=== PATIENT | male | born 1950 | race Caucasian/White ===

== ENCOUNTER 2016-07-02 15:29 | Inpatient (IN) ==
[2016-07-02 16:35] LABS: Basophils # 0.1 K/mcL (0.0-0.2); Basophils % 0.6 %; Eosinophils # 0.3 K/mcL (0.0-0.6); Eosinophils % 2.9 %; Hematocrit 43.9 % (37.5-50.1); Hemoglobin 14.7 g/dL (12.9-16.9); Immature Granulocytes % 0.8 % (0-4); Lymphocytes # 1.9 K/mcL (0.6-4.6); Mean Corpuscular HGB Conc 33.5 g/dL (31.6-35.5); Mean Corpuscular Hemoglobin 29.5 pg (28.0-33.3); Mean Corpuscular Volume 88.2 fL (83.0-100.0); Mean Platelet Volume 9.2 fL (9.4-12.4); Monocytes % 11.1 %; Neutrophils # 5.6 K/mcL (1.6-8.9); Platelet Count 308 K/mcL (140-400); Red Blood Count 4.98 M/mcL (4.19-5.50); Red Cell Distribution Width 15.9 % (11.5-14.5); Segmented Neutrophils % 63.6 %
--- NOTE | 2016-07-02 16:44 | Emergency Department Note ---
Disposition Clinical Impression: Atrial fibrillation with RVR Disposition: Admitted As Inpatient Condition: Fair Arrhythmia/Palpitations HPI - General Chief Complaint: ED Arrhythmia/Palpitations Stated Complaint: A-fib RVR, sent from Echo Time Seen by Provider: 07/02/16 15:54 Source: patient, family Limitations: no limitations Nursing Notes Reviewed: Yes Vital Signs Reviewed: Yes - History of Present Illness HPI Narrative: Patient has been having shortness of breath for the last several months was started on Lasix and does feel better and was scheduled for an echocardiogram today and walked into the parking lot when he got there his heart rate was fast and was in atrial fibrillation so was sent here. No medication use specifically for these symptoms. The patient does have a history of atrial fibrillation but has not had it recently. He denies any chest pain or current shortness of breath. No pain or numbness of the lower extremities. He is here with his and a friend. Denies any fever or blurred vision, rhinorrhea, cough, sneezing, blood in the urine or stool, skin rash or bruising of the skin. Social history: No smoking, only occasional alcohol - Related Data Home Medications Medication Instructions Recorded Confirmed Carvedilol [Coreg] 6.25 mg PO DAILY 04/19/15 07/02/16 Furosemide [Lasix] 80 mg PO BID 04/19/15 07/02/16 Insulin ASPART [Novolog Flexpen] 0 unit SQ BID 04/19/15 07/02/16 Lisinopril-HCTZ 20-12.5 [Prinzide 1 each PO DAILY 04/19/15 07/02/16 20-12.5] HYDROcodone/Acet 5/325 mg [[place] 1 tab PO Q8H PRN 05/24/15 07/02/16 5-325 mg] Gabapentin [Neurontin] 100 mg PO TID 07/02/16 07/02/16 Ibuprofen [Ibuprofen] 800 mg PO TID PRN 07/02/16 07/02/16 Insulin Glargine,Hum.rec.anlog 50 unit SQ HS 07/02/16 07/02/16 [Lantus Solostar] Paroxetine [Paxil] 20 mg PO DAILY 07/02/16 07/02/16 Trazodone HCl 100 mg PO HS 07/02/16 07/02/16 metFORMIN [Glucophage] 500 mg PO BIDWM 07/02/16 07/02/16 Allergies Allergy/AdvReac Type Severity Reaction Status Date / Time No Known Allergies Allergy Verified 07/02/16 15:36 Review of Systems: Constitutional: No fever Vision: No blurred vision ENT: No rhinorrhea Respiratory: No cough Allergic: No allergies : No blood in urine GI: No blood in stool Hematologic: No bruising Dermatologic: No skin rash Musculoskeletal: No pain in the extremities Neuro: No numbness of the extremities Past Medical History - Past Medical History Medical history: Reports: arthritis, atrial fibrillation, CHF, diabetes, hyperlipidemia, hypertension Psychiatric history: Reports: anxiety, depression - Social History Smoking Status: Never smoker Smokeless Tobacco Status: No Alcohol use: Reports: none, occasionally Drug use: Reports: none Physical Exam CONSTITUTIONAL: Well-appearing; well-nourished; A&O X 3, in no apparent distress HEAD: Normocephalic; atraumatic EYES: PERRL, no scleral icterus NOSE: The nose is normal in appearance without rhinorrhea NECK: No JVD or distended neck veins RESP: Normal chest excursion with respiration; breath sounds clear and equal bilaterally; no wheezes, rhonchi, or rales CARD: Irregularly irregular and tachycardic rhythm, without murmurs, rub or gallop ABD: Non-distended; non-tender, soft, without rigidity, rebound or guarding,no pulsatile mass CHEST: No pain with palpation SKIN: Normal for age and race; warm and dry without diaphoresis ; no apparent lesions EXTREMITIES: Pulses are 2 plus and equal times 4 extremities, no peripheral edema or calf muscle pain - General Limitations: no limitations General appearance: alert Course Vital Signs Temperature 97.6 F 07/02/16 15:31 Pulse Rate 94 07/02/16 15:31 Respiratory Rate 20 07/02/16 15:31 Blood Pressure 133/65 07/02/16 15:31 O2 Sat by Pulse Oximetry 94 07/02/16 15:31 Temperature 97.5 F L 07/02/16 19:22 Pulse Rate 91 07/02/16 19:22 Respiratory Rate 14 07/02/16 19:22 Blood Pressure 106/64 07/02/16 19:22 O2 Sat by Pulse Oximetry 95 07/02/16 19:22 Oxygen Delivery Oxygen Delivery Nasal Cannula Arrhythmia/Palpitations - [facility] Narrative Medical decision making narrative: The patient will have a Cardizem bolus and drip and I did review his EKG showing atrial fibrillation with a rapid ventricular response with a rate of [address] and T wave change. Labs including troponin are pending. Patient is not a candidate for cardioversion due to the fact that we do not know the timing of the onset of the symptoms. Results pending. The patient will be watched closely on the route sales specialist. 164 I did review the patient's labs. I did review with him the risks and benefits of Lovenox. He has not had any rectal bleeding or blood in the urine. He did fall 3 weeks ago with several rib fractures on the right and does have a ecchymotic lesion/area on the right lower back but I do not feel this represents a significant risk. No recent head trauma and he did not have any head trauma with his fall 3 weeks ago. The patient will be started on Lovenox I also discussed this with the hospitalist physician. He is currently sitting up and eating. His heart rate is significantly improved with Cardizem. 184 - Medical Records Medical records reviewed: Yes I reviewed the patient's medical records. - Lab Data Lab results reviewed: Yes I reviewed the patient's lab results. Result diagrams: 07/02/16 16:21 07/02/16 16:21 Lab Results 07/02/16 07/02/16 07/02/16 Range/Units 16:21 16:21 16:21 WBC 8.8 (4.3-11.1) K/mcL RBC 4.98 (4.19-5.50) M/mcL Hgb 14.7 (12.9-16.9) g/dL Hct 43.9 (37.5-50.1) % MCV 88.2 (83.0-100.0) fL MCH 29.5 (28.0-33.3) pg MCHC 33.5 (31.6-35.5) g/dL RDW 15.9 H (11.5-14.5) % Plt Count 308 (140-400) K/mcL MPV 9.2 L (9.4-12.4) fL Immature Gran % 0.8 (0-4) % Seg Neutrophils % 63.6 % Lymphocytes % 21.0 % Monocytes % 11.1 % Eosinophils % 2.9 % Basophils % 0.6 % Neutrophils # 5.6 (1.6-8.9) K/mcL Lymphocytes # 1.9 (0.6-4.6) K/mcL Monocytes # 1.0 (0.0-1.3) K/mcL Eosinophils # 0.3 (0.0-0.6) K/mcL Basophils # 0.1 (0.0-0.2) K/mcL PT 12.3 H (9.4-12.1) Seconds INR 1.1 APTT 33.7 (26.0-36.0) Seconds Sodium 136 (136-145) mEq/L Potassium 3.7 (3.5-4.5) mEq/L Chloride 97 L (98-109) mEq/L Carbon Dioxide 28 (19-29) mEq/L BUN 60 H (8-26) mg/dL Creatinine 1.64 H (0.72-1.25) mg/dL Est GFR ( Amer) 52 L (> 60) Est GFR (Non-Af Amer) 43 L (> 60) BUN/Creatinine Ratio 37 H (6-26) Glucose 69 L (70-99) mg/dL Calculated Osmolality 297 (280-300) Calcium 9.8 (8.6-10.8) mg/dL Troponin I (0-0.03) ng/mL 07/02/16 Range/Units 16:21 WBC (4.3-11.1) K/mcL RBC (4.19-5.50) M/mcL Hgb (12.9-16.9) g/dL Hct (37.5-50.1) % MCV (83.0-100.0) fL MCH (28.0-33.3) pg MCHC (31.6-35.5) g/dL RDW (11.5-14.5) % Plt Count (140-400) K/mcL MPV (9.4-12.4) fL Immature Gran % (0-4) % Seg Neutrophils % % Lymphocytes % % Monocytes % % Eosinophils % % Basophils % % Neutrophils # (1.6-8.9) K/mcL Lymphocytes # (0.6-4.6) K/mcL Monocytes # (0.0-1.3) K/mcL Eosinophils # (0.0-0.6) K/mcL Basophils # (0.0-0.2) K/mcL PT (9.4-12.1) Seconds INR APTT (26.0-36.0) Seconds Sodium (136-145) mEq/L Potassium (3.5-4.5) mEq/L Chloride (98-109) mEq/L Carbon Dioxide (19-29) mEq/L BUN (8-26) mg/dL Creatinine (0.72-1.25) mg/dL Est GFR ( Amer) (> 60) Est GFR (Non-Af Amer) (> 60) BUN/Creatinine Ratio (6-26) Glucose (70-99) mg/dL Calculated Osmolality (280-300) Calcium (8.6-10.8) mg/dL Troponin I 0.02 (0-0.03) ng/mL - Radiology Data Radiology results reviewed: Yes I reviewed the patient's radiology results. Chest X-Ray 07/02/16 15:38 IMPRESSION: No acute cardiopulmonary disease D/ / Jaylen Figueroa MD / Jaylen Figueroa MD Interpreting Provider: Jaylen Figueroa MD
[2016-07-02 16:46] LABS: Calcium 9.8 mg/dL (8.6-10.8); Potassium 3.7 mEq/L (3.5-4.5)
[2016-07-02 16:53] LABS: INR 1.1; Prothrombin Time 12.3 Seconds (9.4-12.1)
[2016-07-02 16:55] LABS: Activated Partial Thrombo Time 33.7 Seconds (26.0-36.0)
[2016-07-02] MEDS ORDERED: *HR* Enoxaparin 80 MG/0.8 ML SYRINGE SQ SCH ×2 (18:45→19:30)
[2016-07-02] MEDS ORDERED: Naloxone 0.4 MG/ML INJ IVP PRN (19:05)
[2016-07-02] MEDS ORDERED: *HR* Dextrose 50 % in Water (Syg) 50 ML SYRINGE IVP PRN (19:17)
[2016-07-02] MEDS ORDERED: Dextrose Gel 15 GM PO PRN ×2 (19:17)
[2016-07-02] MEDS ORDERED: D5% in Water 1,000 ML IVC PRN ×2 (19:17→20:35)
--- NOTE | 2016-07-02 20:20 | Internal Med History&Physical ---
<SamCalli J - Last Filed: 07/02/16 20:16> Date of Encounter: 07/02/16 Time of Encounter: 20:16 Assessment and Plan (1) Atrial fibrillation with RVR Current visit: Yes Status: Acute found during outpatient TTE. EKG with A-fib with RVR, HRs up to 150s. Diltiazem gtt and lovenox started ED. HR improved to 90s. TTE with severely dilated left atrium. Trend tropoinin, Cardiology consulted (will need called in am) (2) Acute systolic (congestive) heart failure Current visit: Yes Status: Acute New diagnosis. ROB 07/02/2016 with EF 25%. Appears compensated on exam. Hold home NEGRO with ALIX. Cont araceli, BB. Cardiology consulted. BNP pending (3) ALIX (acute kidney injury) Current visit: Yes Status: Acute Creat 1.6 no baseline and chart for comparison. Patient denies any CTD. Possibly cardiorenal syndrome. Hold home Negro. No IV fluids with low EF. Monitor repeat CMP (4) Diabetes mellitus Current visit: Yes Status: Acute Per history. Control unknown. Continue home long-acting insulin, add sliding scale insulin. Monitor blood sugar and titrate PRN. Hgb A1c pending Qualifiers: Diabetes mellitus type: type 2 Diabetes mellitus complication status: with hyperglycemia Diabetes mellitus intermediate insulin use: with intermediate use Qualified Code(s): E11.65 - Type 2 diabetes mellitus with hyperglycemia; Z79.4 - rat exterminator (current) use of insulin (5) DELMI (obstructive sleep apnea) Current visit: Yes Status: Acute Continue CPAP inpatient (6) DVT prophylaxis Current visit: Yes Status: Acute Lovenox Internal Medicine - H&P: HPI Chief complaint: a-fib found suring routine echo Admitted From: Home Plans for Post Hospital Care: Home History of present illness: Mr. Nguyen is a 65 year old male hypertension, diabetes, sleep apnea who presented to [facility] on 07/02/2016 after he was found to be in A. fib with RVR at routine echo. He was started on Cardizem drip in the ED and admitted for cardiology evaluation. Information obtained from chart review and patient report. Patient's that he had episode of increasing shortness of breath a couple weeks ago and Lasix was increased by his primary care physician at that time an echo was also ordered he presented today for the echo which showed the A. fib with RVR and also new CHF. On my exam the patient says he feels fine, says he has felt better today than he has in a long time. He actually has no complaints, specifically denies chest pain no shortness of breath no palpitations no lightheadedness or dizziness. Past Med Surg Social Fam HX - Past Medical History Medical history: arthritis, atrial fibrillation, CHF, diabetes, hyperlipidemia, hypertension Psychiatric history: anxiety, depression - Past Surgical History Surgical History: non-contributory - Social History Smoking Status: Never smoker Smokeless Tobacco Status: No Alcohol use: none, occasionally Drug use: none - Family History Mother Living Status: Hx Family Cardiac Disorders: Yes Hx Family Cancer: Yes (Breast) Hx Family Endocrine Disorder: Yes (DM) Father Living Status: Hx Family Cancer: Yes (Lung) Internal Medicine - H&P: Meds Carvedilol [Coreg] 6.25 mg PO DAILY 04/19/15 [History] Furosemide [Lasix] 80 mg PO BID 04/19/15 [History] Insulin ASPART [Novolog Flexpen] 0 unit SQ BID 04/19/15 [History] Lisinopril-HCTZ 20-12.5 [Prinzide 20-12.5] 1 each PO DAILY 04/19/15 [History] HYDROcodone/Acet 5/325 mg [[place] 5-325 mg] 1 tab PO Q8H PRN 05/24/15 [History] Gabapentin [Neurontin] 100 mg PO TID 07/02/16 [History] Ibuprofen [Ibuprofen] 800 mg PO TID PRN 07/02/16 [History] Insulin Glargine,Hum.rec.anlog [Lantus Solostar] 50 unit SQ HS 07/02/16 [History ] Paroxetine [Paxil] 20 mg PO DAILY 07/02/16 [History] Trazodone HCl 100 mg PO HS 07/02/16 [History] metFORMIN [Glucophage] 500 mg PO BIDWM 07/02/16 [History] Allergies No Known Allergies Allergy (Verified 07/02/16 15:36) All Systems PM: A 10-system review of systems was performed and is negative for pertinent findings except as documented above in the HPI. - Constitutional Constitutional: no chills, no fever(s), no night sweats - EENT Eyes: no change in vision, no discharge, no pain, no photophobia Ears: no ear discharge, no ear pain, no tinnitus Nose, mouth and throat: no dysphagia, no nasal discharge, no neck pain, no sore throat - Cardiovascular Cardiovascular ROS IM: no chest pain, no diaphoresis, no dyspnea, no lightheadedness, no palpitations, no syncope - Respiratory Respiratory: no cough, no dyspnea, no wheezing, no excessive phlegm production - Gastrointestinal Gastrointestinal: no abdominal pain, no diarrhea, no hematemesis, no hematochezia, no melena, no nausea, no vomiting - Musculoskeletal Musculoskeletal ROS IM: no numbness, no tingling - Integumentary Integumentary IM: no rash, no unusual bruising - Neurological Neurological ROS: no confusion, no convulsions, no focal weakness, no numbness, no tingling, no tremor(s) - Hematologic/Lymphatic Hematologic/Lymphatic: no easy bruising - Constitutional Vitals: Temp Pulse Resp BP Pulse Ox 97.5 F L 91 14 106/64 95 07/02/16 19:22 07/02/16 19:22 07/02/16 19:22 07/02/16 19:22 07/02/16 19:22 General appearance: Present: A&O X 3, morbidly obese - Head Head exam: Present: atraumatic, normocephalic - Eye Eye exam: Present: PERRL, conjuntiva pink, sclera anicteric Pupils: Present: PERRL - Neck Neck exam general surgery: Present: supple, trachea midline. Absent: lymphadenopathy - Respiratory Respiratory exam: Present: CTAB. Absent: accessory muscle use, rales, rhonchi, wheezes - Cardiovascular Cardiovascular exam: Present: irregular rhythm, +S1, +S2. Absent: diastolic murmur, gallop, rubs, systolic murmur - GI/Abdominal GI/Abdominal exam: Present: normal bowel sounds, soft, no peritoneal signs. Absent: distended, tenderness Additional comments: obese - Extremities Exam Extremities exam: Present: warm, radial pulses palpable and symetrical. Absent : calf tenderness, cyanotic, pedal edema - Neurological Exam Neurological exam: Present: CN II-XII intact, oriented X3, no focal deficits. Absent: pronater drift, facial droop, speech deficit - Skin Skin exam: Present: dry, intact Internal Med - H&P Results - Labs CBC & Chem 7: 07/02/16 16:21 07/02/16 16:21 <Ang Amos - Last Filed: 07/03/16 00:09> Date of Encounter: 07/02/16 Assessment and Plan (1) Renal insufficiency Current visit: Yes Status: Acute baseline renal function unknown but his creatinine is elevated at this time, will avoid nephrotoxins, renally dose al medications and follow BMP Internal Medicine - H&P: HPI History of present illness: Mr. Nguyen is a 65 year old male All Systems PM: A 10-system review of systems was performed and is negative for pertinent findings except as documented above in the HPI. - Constitutional Vitals: Temp Pulse Resp BP Pulse Ox 97.5 F L 91 14 106/64 98 07/02/16 19:22 07/02/16 19:22 07/02/16 19:22 07/02/16 19:22 07/02/16 23:46 Internal Med - H&P Results - Labs CBC & Chem 7: 07/02/16 16:21 07/02/16 16:21 - Diagnostic Studies Chest x-ray Status: image reviewed by me - Attending Attestation I personally interviewed and examined this patient and my medical decision- making was reviewed with the Advanced Practice Nurse. I agree with the documented findings, disposition and treatment plan as described.
[2016-07-02 20:28] LABS: Hemoglobin A1C 6.5 %
[2016-07-02] MEDS ORDERED: 0.9 % Sodium Chloride 1,000 ML ONE (20:43)
[2016-07-02] MEDS: Gabapentin 100 MG CAPSULE PO SCH (20:52)
[2016-07-02] MEDS: Furosemide 40 MG TABLET PO SCH (20:53)
[2016-07-02] MEDS: *HR* Enoxaparin 80 MG/0.8 ML SYRINGE SQ SCH (20:53)
[2016-07-02] MEDS: traZODone 50 MG TABLET PO SCH (20:53)
[2016-07-02] MEDS ORDERED: Insulin DETEMIR 100 UNIT/ML X5UNITS SQ SCH ×2 (21:00)
[2016-07-02] MEDS ORDERED: Insulin LISPRO 300 UNITS/3 ML VIAL SQ SCH (21:00)
[2016-07-02] MEDS ORDERED: Furosemide 40 MG/4 ML VIAL IVP SCH (21:00)
[2016-07-02] MEDS: *HR* HYDROcodone/Acet 5/325 mg TABLET PO PRN (23:14)
[2016-07-03 01:08] LABS: Basophils # 0.1 K/mcL (0.0-0.2); Basophils % 0.5 %; Eosinophils # 0.3 K/mcL (0.0-0.6); Eosinophils % 2.9 %; Hematocrit 40.5 % (37.5-50.1); Hemoglobin 13.4 g/dL (12.9-16.9); Immature Granulocytes % 0.5 % (0-4); Lymphocytes % 21.4 %; Mean Corpuscular HGB Conc 33.1 g/dL (31.6-35.5); Mean Corpuscular Hemoglobin 29.2 pg (28.0-33.3); Mean Corpuscular Volume 88.2 fL (83.0-100.0); Mean Platelet Volume 9.4 fL (9.4-12.4); Monocytes # 0.8 K/mcL (0.0-1.3); Neutrophils # 6.1 K/mcL (1.6-8.9); Platelet Count 299 K/mcL (140-400); Red Blood Count 4.59 M/mcL (4.19-5.50); Red Cell Distribution Width 15.8 % (11.5-14.5); Segmented Neutrophils % 65.7 %
[2016-07-03 01:35] LABS: Albumin 3.4 g/dL (3.5-5.0); Albumin/Globulin Ratio 0.9 (1.1-2.2); Bilirubin,Total 0.9 mg/dL (0.2-1.2); Calcium 9.3 mg/dL (8.6-10.8); Chol/HDL Ratio 7.4 (0-4.9); Globulin 3.7 g/dL (2.4-3.5); Potassium 3.6 mEq/L (3.5-4.5); Total Protein 7.1 g/dL (6.0-8.3)
[2016-07-03] MEDS: *HR* Enoxaparin 80 MG/0.8 ML SYRINGE SQ SCH (05:06)
[2016-07-03] MEDS ORDERED: Insulin LISPRO 300 UNITS/3 ML VIAL SQ SCH (07:30)
--- NOTE | 2016-07-03 08:05 | Cardiology Consult Note ---
Date of Encounter: 07/03/16 Time of Encounter: 08:04 Assessment and Plan (1) Acute systolic (congestive) heart failure Current Visit: Yes Status: Acute TTE done on 07/02/2016 shows severely dilated right atrium, global hypokinesis, ejection fraction 25-30%. No prior echocardiogram for comparison - CHF initially diagnosed in 2008 with prior episode of A. fib that required multiple cardioversions; however, pt states he did not need Lasix again until a few years ago. - Pt just saw his PCP Dr. Trotter on 05/27/16 with worsening "fluid in the lungs " and orthopnea. Pt states his lasix was doubled for the next week. - Currently lungs sound clear, no dyspnea, no peripheral edema- Can decrease lasix to 40 mg BID. - Change Carvedilol 6.25mg to Toprol XL 50mg BID due to soft BPs and better cardioselective activity. - Due to worsening EF and multiple risk factors for ischemic disease, will plan to heart cath once renal function improves; NPO after breakfast tomorrow for possible heart cath tomorrow afternoon. (2) Atrial fibrillation with RVR Current Visit: Yes Status: Acute Heart rate during my examination is anywhere from low 100 to 120s. - Currently on Cardizem drip and anticoagulated with Lovenox 170 subcutaneous every 12 hours - Increase Toprol XL to 50mg BID. (3) Renal insufficiency Current Visit: Yes Status: Acute AKA on CKD with creatinine 2.19. Previously on 07/28/2013 was 1.02 - Hold Lisinopril-HCTZ - Avoid nephrotoxins Discussion w patient/family: The assessment and plan as outlined above was discussed with the patient and/or family members who expressed understanding and agreement. All questions were answered. Thank you for involving us in the care of your patient. Please call with any questions. History of Present Illness Consult date: 07/02/16 Requesting physician: Calli Vargas Consult reason: a fib with RVR, decreased EF 25-30% Chief complaint: shortness of breath History of present illness: Mr. Nguyen is a 65 year old male with a past medical history of atrial fibrillation, congestive heart failure, type 2 diabetes, hyperlipidemia, hypertension, obstructive sleep apnea. He initially presented to the emergency department after having an outpatient echocardiogram which showed reduced ejection fraction 25-30% with global hypokinesis and severely dilated atrium. He was also found to be in atrial fibrillation with RVR at that time. Patient states at that time he had just told his that he felt better than he had in several months. However prior to this, he was feeling more short of breath and his primary care physician Dr. Trotter had doubled his Lasix dose for approximately 9 days which relieved his symptoms. Patient does not know when his last echocardiogram was. States the first time he heard A. fib and congestive heart failure mentioned was back in 2008 in which she required multiple cardioversions. States he has taken Lasix for a few weeks but then he did not need them anymore. Patient states he started tasting Lasix again per his primary care physician over the last few years. Patient denies any nausea, vomiting, fever or chills. No chest pain or difficulty breathing. No problems with urination or bowel movements. The patient does have history of kidney problems and states he is scheduled to see outpatient gis engineer. In the emergency department, patient was found to be in A. fib with RVR with a rate in the 120s. He was placed on a Cardizem drip as well as Lovenox subcutaneous for anticoagulation. Patient was then admitted to the inpatient service and cardiology was consulted for their reduced ejection fraction and A. fib with RVR. Past Med Surg Social Fam HX - Past Medical History Medical history: arthritis, atrial fibrillation, CHF, diabetes, hyperlipidemia, hypertension Psychiatric history: anxiety, depression - Past Surgical History Surgical History: non-contributory - Social History Smoking Status: Never smoker Smokeless Tobacco Status: No Alcohol use: none, occasionally Drug use: none - Family History Mother Living Status: Cause of : [place] Hx Family Cardiac Disorders: Yes ([place],smoker) Hx Family Cancer: Yes (Breast) Hx Family Endocrine Disorder: Yes (DM) Father Living Status: Hx Family Cancer: Yes (Lung, smoker) Medications and Allergies Carvedilol [Coreg] 6.25 mg PO DAILY 04/19/15 [History] Furosemide [Lasix] 80 mg PO BID 04/19/15 [History] Insulin ASPART [Novolog Flexpen] 0 unit SQ BID 04/19/15 [History] Lisinopril-HCTZ 20-12.5 [Prinzide 20-12.5] 1 each PO DAILY 04/19/15 [History] HYDROcodone/Acet 5/325 mg [[place] 5-325 mg] 1 tab PO Q8H PRN 05/24/15 [History] Gabapentin [Neurontin] 100 mg PO TID 07/02/16 [History] Ibuprofen [Ibuprofen] 800 mg PO TID PRN 07/02/16 [History] Insulin Glargine,Hum.rec.anlog [Lantus Solostar] 50 unit SQ HS 07/02/16 [History ] Paroxetine [Paxil] 20 mg PO DAILY 07/02/16 [History] Trazodone HCl 100 mg PO HS 07/02/16 [History] metFORMIN [Glucophage] 500 mg PO BIDWM 07/02/16 [History] Allergies No Known Allergies Allergy (Verified 07/02/16 15:36) All Systems Review: A 10-system review of systems was performed and is negative for pertinent findings except as documented above in the HPI. - Constitutional Constitutional: no fatigue, no weakness - EENT Eyes: no blurred vision Nose, mouth and throat: no dysphagia, no sore throat - Cardiovascular Cardiovascular: irregular heart rhythm, no chest pain at rest, no chest pain with exertion, no dyspnea at rest, no dyspnea on exertion, no radiating jaw, neck or arm pain, no leg edema, no lightheadedness - Respiratory Respiratory: no cough, no dyspnea - Gastrointestinal Gastrointestinal: no abdominal pain - Genitourinary Genitourinary: no dysuria - Musculoskeletal Musculoskeletal: back pain (chronic) - Integumentary Integumentary: no erythema, no rash - Neurological Neurological: no abnormal speech, no dizziness, no focal weakness Physical Examination Vital Signs, Last 4 Hours Temp Pulse Resp BP Pulse Ox 07/03/16 04:29 97.6 F 88 17 93/76 93 General: Conversant, No Apparent Distress HEENT: Atraumatic, Mucus Membranes Moist Neck: No JVD, Normal carotid pulses Cardiac: Other Lungs: Normal Breath Sounds, No Wheeze, Rales, Rhonchi Neuro: Alert and responsive, No focal deficits noted Abdomen: Soft, Non-Tender (a fib with rvr) Skin: No rashes noted on visualized skin Musculoskeletal: No Chest Wall Tenderness Extremities: No Clubbing, No Edema, Normal Pulses Results 07/03/16 00:58 07/03/16 00:58 Lab Results 05/07/03/16 07/03/16 00:58 00:58 00:58 WBC 9.4 Hgb 13.4 Hct 40.5 Plt Count 299 Sodium 135 L Potassium 3.6 Chloride 96 L Carbon Dioxide 28 BUN 65 H Creatinine 2.05 H Glucose 254 H Calcium 9.3 Total Bilirubin 0.9 AST 16 ALT 18 Alkaline Phosphatase 71 Troponin I 0.02 07/03/16 06:32 WBC Hgb Hct Plt Count Sodium Potassium Chloride Carbon Dioxide BUN Creatinine Glucose Calcium Total Bilirubin AST ALT Alkaline Phosphatase Troponin I 0.02 - Imaging and Cardiology Chest Xray: report reviewed Echo: report reviewed - EKG Interpretation EKG results cardiology: personally reviewed, no diagnostic ischemia (EKG done at 16:39 on 07/02/16 shows A fib with RVR rate 126, left axis deviation) Consult Discharge Plan - Plan Referrals: Danielle Morocho, YOLI [Advanced Practice Nurse] - 07/13/16 3:15 pm
[2016-07-03] MEDS: Gabapentin 100 MG CAPSULE PO SCH ×3 (08:38→21:09)
[2016-07-03] MEDS: Furosemide 40 MG TABLET PO SCH ×2 (08:38→17:13)
[2016-07-03] MEDS ORDERED: Lisinopril-HCTZ 20-12.5mg TABLET PO SCH (09:00)
[2016-07-03] MEDS: *HR* HYDROcodone/Acet 5/325 mg TABLET PO PRN ×2 (12:53→23:50)
[2016-07-03] MEDS: Insulin DETEMIR 100 UNIT/ML X5UNITS SQ SCH ×2 (12:54→21:09)
[2016-07-03] MEDS: Insulin LISPRO 300 UNITS/3 ML VIAL SQ SCH ×5 (12:55→21:02)
--- NOTE | 2016-07-03 13:38 | Internal Med Progress Note ---
Date of Encounter: 07/03/16 Time of Encounter: 13:37 - Assessment and plan (1) Acute systolic (congestive) heart failure Current Visit: Yes Status: Acute Assessment and plan: Likely secondary to conversion from sinus to atrial fibrillation. We will treat him with Lasix 40 mg IV twice a day. Daily weights. Sodium restricted diet. Fluid restriction. Strict I's and O's. (2) Atrial fibrillation with RVR Current Visit: Yes Status: Acute Assessment and plan: Currently on Cardizem drip. We will continue this. We will titrate to maintain heart rate between 70 and 90. Cardiology was consulted. We will start oral diltiazem. He is anticoagulated with Lovenox. (3) DVT prophylaxis Current Visit: Yes Status: Acute Assessment and plan: Fully anticoagulated with Lovenox. (4) Diabetes mellitus Current Visit: Yes Status: Acute Assessment and plan: Poorly controlled today. He was on low-dose sliding scale. We will increase to moderate sliding scale. Add pre-meal insulin coverage with Humalog and divide Levemir and 25 units twice daily. Continue with diabetic diet. Qualifiers: Diabetes mellitus type: type 2 Diabetes mellitus complication status: with hyperglycemia Diabetes mellitus marine oil terminal superintendent insulin use: with [facility] use Qualified Code(s): E11.65 - Type 2 diabetes mellitus with hyperglycemia; Z79.4 - correction (current) use of insulin (5) DELMI (obstructive sleep apnea) Current Visit: Yes Status: Acute Assessment and plan: Nighttime CPAP. - Subjective Interval history: 07/03/2016: Patient was found to have atrial fibrillation during a routine echocardiogram yesterday. This was a new diagnosis. He denies chest pain palpitations and shortness of breath. He reports right rib pain where he fell a few weeks ago and crack 3 ribs striking the side of the hot tub. The pain is moderate at rest. - Constitutional Vitals: Temp Pulse Resp BP Pulse Ox 98 F 87 16 93/47 94 07/03/16 10:48 07/03/16 10:48 07/03/16 10:48 07/03/16 10:48 07/03/16 10:48 General appearance: Present: A&O X 3, morbidly obese - Eye Eye exam: Present: PERRL, conjuntiva pink, sclera anicteric Pupils: Present: PERRL - Cardiovascular Cardiovascular exam: Present: irregular rhythm, +S1, +S2. Absent: diastolic murmur, gallop, rubs, systolic murmur - GI/Abdominal GI/Abdominal exam: Present: normal bowel sounds, soft, no peritoneal signs. Absent: distended, tenderness - Extremities Exam Extremities exam: Present: warm, radial pulses palpable and symetrical. Absent : calf tenderness, cyanotic, pedal edema - Skin Skin exam: Present: dry, intact Internal Medicine: Result - Labs CBC & Chem 7: 07/03/16 00:58 07/03/16 00:58 Labs: Short CBC 07/03/16 Range/Units 00:58 WBC 9.4 (4.3-11.1) K/mcL Hgb 13.4 (12.9-16.9) g/dL Hct 40.5 (37.5-50.1) % Plt Count 299 (140-400) K/mcL Neutrophils # 6.1 (1.6-8.9) K/mcL BMP 07/03/16 00:58 Sodium 135 L Potassium 3.6 Chloride 96 L Carbon Dioxide 28 BUN 65 H Creatinine 2.05 H Glucose 254 H Calcium 9.3 Cardiac Enzymes 07/03/16 07/03/16 Range/Units 00:58 06:32 Troponin I 0.02 0.02 (0-0.03) ng/mL Liver Function 07/03/16 Range/Units 00:58 Total Bilirubin 0.9 (0.2-1.2) mg/dL AST 16 (5-34) Units/L ALT 18 (0-55) Units/L Alkaline Phosphatase 71 (38-126) Units/L Albumin 3.4 L (3.5-5.0) g/dL - ABG Interpretation ABG results: PT/INR, D-dimer PT 12.3 Seconds (9.4-12.1) H 07/02/16 16:21 Consult Discharge Plan - Plan Referrals: Danielle Morocho CNP [Advanced Practice Nurse] - 07/13/16 3:15 pm
[2016-07-03] MEDS ORDERED: *HR* Morphine 2 MG/ML SYRINGE IVP PRN (14:51)
[2016-07-03] MEDS ORDERED: *HR* Heparin 5,000 UNIT/ML VIAL IVP PRN (16:02)
[2016-07-03] MEDS ORDERED: Heparin 25,000 UNIT/500 ML D5W 25,000 UNIT/500 ML MLS IVC SCH (16:15)
[2016-07-03] MEDS ORDERED: *HR* Heparin 5,000 UNIT/ML VIAL IVP ONE (16:19)
--- NOTE | 2016-07-03 16:34 | Electrocardiograph Report ---
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
--- NOTE | 2016-07-03 16:40 | Event Note ---
Date of Encounter: 07/03/16 Time of Encounter: 16:30 - Cardiology Event Note Patient seen this evening. Remains on Cardizem drip at 15 mg per hour. Will increase beta óscar. Attempt to wean IV Cardizem to keep heart rate less than 100 bpm. Will discontinue Lovenox with acute kidney injury. Starting heparin drip. We'll need to address long-term anticoagulation once ischemic evaluation completed.
[2016-07-03 16:49] LABS: Hematocrit 40.2 % (37.5-50.1); Hemoglobin 13.2 g/dL (12.9-16.9); Mean Corpuscular HGB Conc 32.8 g/dL (31.6-35.5); Mean Corpuscular Hemoglobin 29.2 pg (28.0-33.3); Mean Corpuscular Volume 88.9 fL (83.0-100.0); Mean Platelet Volume 9.8 fL (9.4-12.4); Platelet Count 316 K/mcL (140-400); Red Blood Count 4.52 M/mcL (4.19-5.50); Red Cell Distribution Width 15.8 % (11.5-14.5)
[2016-07-03 16:51] LABS: INR 1.2
[2016-07-03 16:54] LABS: Activated Partial Thrombo Time 49.5 Seconds (26.0-36.0)
[2016-07-03] MEDS: Metoprolol XL (24 HR) Succ 50 MG TAB.ER.24H PO SCH ×2 (17:13→21:08)
[2016-07-03] MEDS: Heparin 25,000 UNIT/500 ML D5W 25,000 UNIT/500 ML MLS IVC SCH (17:18)
[2016-07-03] MEDS ORDERED: Metoprolol XL (24 HR) Succ 50 MG TAB.ER.24H PO SCH (21:00)
[2016-07-03] MEDS ORDERED: Furosemide 40 MG/4 ML VIAL IVP SCH (21:00)
[2016-07-03] MEDS: traZODone 50 MG TABLET PO SCH (21:08)
[2016-07-03] MEDS: *HR* Heparin 5,000 UNIT/ML VIAL IVP PRN (23:43)
[2016-07-04 05:37] LABS: Basophils # 0.1 K/mcL (0.0-0.2); Basophils % 0.6 %; Eosinophils # 0.3 K/mcL (0.0-0.6); Eosinophils % 3.3 %; Hematocrit 37.8 % (37.5-50.1); Hemoglobin 12.8 g/dL (12.9-16.9); Immature Granulocytes % 0.5 % (0-4); Lymphocytes # 2.2 K/mcL (0.6-4.6); Lymphocytes % 25.5 %; Mean Corpuscular HGB Conc 33.9 g/dL (31.6-35.5); Mean Corpuscular Volume 88.7 fL (83.0-100.0); Mean Platelet Volume 9.7 fL (9.4-12.4); Neutrophils # 5.1 K/mcL (1.6-8.9); Platelet Count 270 K/mcL (140-400); Red Blood Count 4.26 M/mcL (4.19-5.50); Red Cell Distribution Width 15.9 % (11.5-14.5); Segmented Neutrophils % 59.1 %
[2016-07-04 05:47] LABS: Calcium 9.1 mg/dL (8.6-10.8); Magnesium 2.1 mg/dL (1.6-2.6); Potassium 3.5 mEq/L (3.5-4.5)
[2016-07-04] MEDS: *HR* Heparin 5,000 UNIT/ML VIAL IVP PRN ×3 (06:25→20:01)
[2016-07-04] MEDS: Metoprolol XL (24 HR) Succ 50 MG TAB.ER.24H PO SCH ×2 (08:00→20:00)
[2016-07-04] MEDS: Furosemide 40 MG TABLET PO SCH (08:00)
[2016-07-04] MEDS: Gabapentin 100 MG CAPSULE PO SCH ×3 (08:00→20:00)
[2016-07-04] MEDS: Insulin LISPRO 300 UNITS/3 ML VIAL SQ SCH ×7 (08:01→20:09)
[2016-07-04] MEDS: Insulin DETEMIR 100 UNIT/ML X5UNITS SQ SCH ×2 (08:07→20:09)
--- NOTE | 2016-07-04 08:07 | Cardiology Progress Note ---
Date of Encounter: 07/04/16 Time of Encounter: 08:05 Assessment and Plan (1) Atrial fibrillation with RVR Current Visit: Yes Status: Acute Per Cardiology: Cardizem gtt now off this am and on Toprol XL 50mg PO BID. Average heart rate the past 12 hours 86, atrial fibrillation. Currently in the 80s on telemetry afib. Systolic blood pressures in the 90s to 110s. Will continue to monitor HR and SBP. Off ACEI/HCTZ as well. Regarding long-term anticoagulation, on IV heparin gtt. We'll need to address long-term anticoagulation prior to discharge and once catheterization completed. Of note, patient is [employer]. (2) Acute systolic (congestive) heart failure Current Visit: Yes Status: Acute Per Cardiology: TTE done on 07/02/2016 shows severely dilated right atrium, global hypokinesis, ejection fraction 25-30%. No prior echocardiogram for comparison. CHF initially diagnosed in 2008 with prior episode of A. fib that required multiple cardioversions; however, pt states he did not need Lasix again until a few years ago. Had recent lasix increase by PCP. According to medical records patient net I&O +706ml, however no urine output recorded during entire hospital stay. Orders placed for strict I&O, daily weights, 1.5 L fluid restriction. Currently on Lasix 40 mg by mouth twice a day. Euvolemic upon exam. Consider stopping Lasix d/t ALIX. Left heart catheterization pending once kidney function improves. (3) ALIX (acute kidney injury) Current Visit: Yes Status: Acute Per Cardiology: No previous creatinines available for review. Currently appears to have acute kidney injury. Current creatinine elevated at 2.03. Continue to monitor closely with diuresis. Discussed with Dr. Merrill, will postpone [facility] for today-- re- evaluate for Sun or Mon. Consider nephrology c/s-- patient reported was supposed to be seen by Nephrology as outpatient per PCP recs. Discussion w patient/family: The assessment and plan as outlined above was discussed with the patient and/or family members who expressed understanding and agreement. All questions were answered. Thank you for involving us in the care of your patient. Please call with any questions. Subjective Principal diagnosis: Afib RVR Interval history: Patient denies any chest pain or palpitations. Reports mild shortness of breath. Reports fatigue remains about baseline. Objective Vital Signs, Last 4 Hours Temp Pulse Resp BP Pulse Ox 07/04/16 06:33 98.7 F 91 17 108/74 94 07/04/16 04:41 98.3 F 76 18 93/65 93 General: Conversant, No Apparent Distress HEENT: Atraumatic, Normocephaly, Mucus Membranes Moist Neck: No JVD, Normal carotid pulses Cardiac: No Murmur, Other (Irregularly irregular) Lungs: Normal Breath Sounds, No Wheeze, Rales, Rhonchi, Other Neuro: Alert and responsive, No focal deficits noted, Other (obese) Abdomen: Soft, Non-Tender Skin: No rashes noted on visualized skin Musculoskeletal: No Chest Wall Tenderness Extremities: No Clubbing, No Cyanosis, No Edema, Normal Pulses Results 07/04/16 05:28 07/04/16 05:28 Lab Results Laboratory Tests 07/04/16 05:28 Creatinine 2.03 H Est GFR (Non-Af Amer) 33 L Magnesium 2.1 Intake & Output 07/01/16 07/02/16 07/03/16 07/04/16 23:59 23:59 23:59 23:59 Intake Total 531.7 / 531.7 175 / 175 Output Total 0 / 0 0 / 0 Balance 531.7 / 531.7 175 / 175 Weight 164.8 kg 156.7 kg Active Medications Acetaminophen/Hydrocodone Bitart ([place] 5-325 Mg) 1 tab PO Q8H PRN PRN Reason: Pain Stop: 01/01/17 19:12 Last Admin: 07/03/16 23:50 Dose: 1 tab Dextrose/Water (Dextrose 50% (Syg)) 25 ml IVP AD PRN PRN Reason: Hypoglycemia Stop: 01/01/17 19:18 Diphenhydramine HCl (Benadryl) 25 mg PO HS PRN PRN Reason: Insomnia Stop: 01/02/17 14:52 Last Admin: 07/03/16 23:50 Dose: 25 mg Furosemide (Lasix) 40 mg PO BIDDIURETIC MAGGI Stop: 01/02/17 17:01 Last Admin: 07/03/16 17:13 Dose: 40 mg Gabapentin (Neurontin) 100 mg PO TID MAGGI Stop: 01/01/17 21:01 Last Admin: 07/03/16 21:09 Dose: 100 mg Glucagon (Glucagen) 1 mg IM ONCE PRN PRN Reason: Hypoglycemia Stop: 01/01/17 19:18 Glucose (Gluctose) 15 gm PO ONCE PRN PRN Reason: Hypoglycemia Stop: 01/01/17 19:18 Glucose (Gluctose) 30 gm PO ONCE PRN PRN Reason: Hypoglycemia Stop: 01/01/17 19:18 Heparin Sodium (Porcine) (Heparin) 4,000 unit IVP Q6HR PRN PRN Reason: SEE COMMENTS Stop: 01/02/17 16:20 Heparin Sodium (Porcine) (Heparin) 2,000 unit IVP Q6H PRN PRN Reason: SEE COMMENTS Stop: 01/02/17 16:20 Last Admin: 07/04/16 06:25 Dose: 2,000 unit Dextrose (Dextrose 5%) 1,000 mls @ 100 mls/hr IVC .Q10H PRN PRN Reason: HYPOGLYCEMIA Stop: 01/01/17 19:18 Dextrose (Dextrose 5%) 1,000 mls @ 100 mls/hr IVC .Q10H PRN PRN Reason: HYPOGLYCEMIA Stop: 01/01/17 20:36 Diltiazem HCl 125 mg/ Dextrose 125 mls @ 10 mls/hr IVC .[id number] MAGGI; 10 MG/HR PRN Reason: Protocol Stop: 01/01/17 10:51 Last Titration: 07/04/16 05:34 Dose: 5 mg/hr, 5 mls/hr Heparin Sodium/Dextrose (Heparin 25,000 Unit/500 Ml D5w) 25,000 unit in 500 mls @ 19.908 mls/hr IVC .Q24H MAGGI; 6.04 UNIT/KG/HR PRN Reason: Protocol Stop: 01/02/17 16:31 Last Titration: 07/04/16 06:26 Dose: 10.58 unit/kg/hr, 34.9 mls/hr Insulin Detemir (Levemir) 30 unit SQ BID MAGGI Stop: 01/03/17 09:01 Insulin Human Lispro (Humalog) 10 units SQ TIDWM MAGGI Stop: 01/02/17 12:01 Last Admin: 07/03/16 17:19 Dose: 10 units Insulin Human Lispro (Humalog) 0 units SQ TIDAC MAGGI PRN Reason: Protocol Stop: 01/02/17 12:01 Last Admin: 07/03/16 17:21 Dose: 10 units Insulin Human Lispro (Humalog) 0 units SQ HS MAGGI PRN Reason: Protocol Stop: 01/02/17 21:01 Last Admin: 07/03/16 21:02 Dose: Not Given Metoprolol Succinate (Toprol Xl) 50 mg PO BID MAGGI Stop: 01/02/17 16:03 Last Admin: 07/03/16 21:08 Dose: 50 mg Naloxone HCl (Narcan) 0.4 mg IVP Q2MIN PRN PRN Reason: Opioid Reversal Stop: 01/01/17 19:06 Paroxetine HCl (Paxil) 20 mg PO DAILY MAGGI PRN Reason: Protocol Stop: 01/02/17 09:01 Last Admin: 07/03/16 08:38 Dose: 20 mg Trazodone HCl (Trazodone) 100 mg PO HS MAGGI Stop: 01/01/17 21:01 Last Admin: 07/03/16 21:08 Dose: 100 mg - Imaging and Cardiology Echo: report reviewed Cardiac cath: pending - EKG Interpretation EKG results cardiology: other (Telemetry reviewed the average heart rate past 12 hours 86, atrial fib ablation; currently A. fib at 87) Consult Discharge Plan - Plan Referrals: Danielle Morocho, YOLI [Advanced Practice Nurse] - 07/13/16 3:15 pm
--- NOTE | 2016-07-04 08:56 | Internal Med Progress Note ---
Date of Encounter: 07/04/16 Time of Encounter: 08:54 - Assessment and plan (1) Atrial fibrillation with RVR Current Visit: Yes Status: Acute Assessment and plan: Rate currently controlled on cardizem gtt pt to be titrated off the drip and maintain HR <100 Received Metoprolol this morning, will attempt to wean off cardizem drip, if remains tachycardic, will initiate PO cardizem therapy Cardiology consultation appreciated Anticoagulation with Heparin gtt due to poor renal function Cardiology to discuss about long term care administrator anticoagulation with the patient (2) Acute systolic (congestive) heart failure Current Visit: Yes Status: Chronic Assessment and plan: Likely secondary to conversion from sinus to atrial fibrillation. Does not clinically appear to have severe CHF decompensation Tolerating PO lasix well, will continue Renal function appears to be plateauing, will closely monitor continue fluid restriction diet monitor I/Os daily weights monitor O2 sat O2 supplementation as needed (3) ALIX (acute kidney injury) Current Visit: Yes Status: Acute Assessment and plan: Likely drug induced (diuretic therapy), can be also be secondary to the recurrent hypotensive episodes Lasix dose decreased and converted to PO renal function appears slightly better, will continue to monitor Closely monitor BP, hold antihypertensive agents for SBP<120 Pt received morning dose of Metoprolol, will consider starting Cardizem PO given current BP readings (4) Diabetes mellitus Current Visit: Yes Status: Chronic Assessment and plan: Hyperglycemia persists Increased Levemir to 30units BID continue sliding scale insulin algorithm monitor FS and BG ADA diet Qualifiers: Diabetes mellitus type: type 2 Diabetes mellitus complication status: with hyperglycemia 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 Resting in bed and reports of feeling better at this time. Denies any shortness of breath or palpitations. Rate currently controlled on cardizem gtt, pt received morning dose of Metoprolol, will attempt to titrate off drip, and start Cardizem PO if needed for rate control Renal function slightly better compared to previous day however still not optimal for [facility]. Cardiology on board. - Constitutional Vitals: Temp Pulse Resp BP Pulse Ox 98.7 F 91 17 108/74 94 07/04/16 06:33 07/04/16 06:33 07/04/16 06:33 07/04/16 06:33 07/04/16 06:33 General appearance: Present: A&O X 3, morbidly obese, no acute distress - Head Head exam: Present: atraumatic, normocephalic - Eye Eye exam: Present: normal appearance, conjuntiva pink, sclera anicteric - Respiratory Respiratory exam: Present: decreased breath sounds (due to body habitus). Absent: accessory muscle use, rales, rhonchi, wheezes - Cardiovascular Cardiovascular exam: Present: irregular rhythm, +S1, +S2 - GI/Abdominal GI/Abdominal exam: Present: distended (obese), normal bowel sounds, soft, no peritoneal signs. Absent: tenderness - Extremities Exam Extremities exam: Present: warm, radial pulses palpable and symetrical. Absent : calf tenderness, cyanotic, pedal edema - Neurological Exam Neurological exam: Present: alert, oriented X3 - Psychiatric Psychiatric exam: Present: normal affect, normal mood Internal Medicine: Result - Labs CBC & Chem 7: 07/04/16 05:28 07/04/16 05:28 Labs: Short CBC 07/03/16 07/04/16 Range/Units 16:37 05:28 WBC 7.6 8.6 (4.3-11.1) K/mcL Hgb 13.2 12.8 L (12.9-16.9) g/dL Hct 40.2 37.8 (37.5-50.1) % Plt Count 316 270 (140-400) K/mcL Neutrophils # 5.1 (1.6-8.9) K/mcL BMP 07/04/16 05:28 Sodium 135 L Potassium 3.5 Chloride 98 Carbon Dioxide 27 BUN 69 H Creatinine 2.03 H Glucose 175 H Calcium 9.1 - ABG Interpretation ABG results: PT/INR, D-dimer PT 13.0 Seconds (9.4-12.1) H 07/03/16 16:37 Consult Discharge Plan - Plan Referrals: Danielle Morocho CNP [Advanced Practice Nurse] - 07/13/16 3:15 pm
[2016-07-04] MEDS: *HR* HYDROcodone/Acet 5/325 mg TABLET PO PRN ×2 (09:29→20:00)
--- NOTE | 2016-07-04 13:03 | Event Note ---
Date of Encounter: 07/04/16 Time of Encounter: 13:00 - Cardiology Event Note Discussed with Dr. Dunlap, will stop Lasix for now. Will c/s nephrology for further recs prior to [facility].
[2016-07-04] MEDS: Heparin 25,000 UNIT/500 ML D5W 25,000 UNIT/500 ML MLS IVC SCH (13:56)
[2016-07-04] MEDS: traZODone 50 MG TABLET PO SCH (20:00)
[2016-07-05] MEDS: Heparin 25,000 UNIT/500 ML D5W 25,000 UNIT/500 ML MLS IVC SCH (00:29)
[2016-07-05 02:48] LABS: Basophils % 0.4 %; Eosinophils # 0.2 K/mcL (0.0-0.6); Eosinophils % 2.4 %; Hematocrit 40.8 % (37.5-50.1); Hemoglobin 13.2 g/dL (12.9-16.9); Immature Granulocytes % 0.4 % (0-4); Lymphocytes # 1.5 K/mcL (0.6-4.6); Lymphocytes % 16.5 %; Mean Corpuscular HGB Conc 32.4 g/dL (31.6-35.5); Mean Corpuscular Hemoglobin 29.1 pg (28.0-33.3); Mean Corpuscular Volume 90.1 fL (83.0-100.0); Mean Platelet Volume 9.4 fL (9.4-12.4); Monocytes % 10.3 %; Neutrophils # 6.5 K/mcL (1.6-8.9); Platelet Count 284 K/mcL (140-400); Red Blood Count 4.53 M/mcL (4.19-5.50); Red Cell Distribution Width 15.4 % (11.5-14.5)
[2016-07-05 03:03] LABS: Calcium 9.6 mg/dL (8.6-10.8); Magnesium 2.3 mg/dL (1.6-2.6); Phosphorous 3.8 mg/dL (2.3-4.7); Potassium 4.1 mEq/L (3.5-4.5)
[2016-07-05] MEDS: *HR* Heparin 5,000 UNIT/ML VIAL IVP PRN (03:15)
[2016-07-05] MEDS: Gabapentin 100 MG CAPSULE PO SCH ×3 (08:17→21:34)
[2016-07-05] MEDS: Metoprolol XL (24 HR) Succ 50 MG TAB.ER.24H PO SCH ×2 (08:17→21:34)
[2016-07-05] MEDS: Insulin DETEMIR 100 UNIT/ML X5UNITS SQ SCH ×2 (08:18→21:34)
[2016-07-05] MEDS: Insulin LISPRO 300 UNITS/3 ML VIAL SQ SCH ×7 (08:19→21:34)
[2016-07-05] MEDS ORDERED: Insulin DETEMIR 100 UNIT/ML X5UNITS SQ ONE (09:33)
--- NOTE | 2016-07-05 09:37 | Internal Med Progress Note ---
Date of Encounter: 07/05/16 Time of Encounter: 09:03 - Assessment and plan (1) Atrial fibrillation with RVR Current Visit: Yes Status: Acute Assessment and plan: Rate currently controlled with BB anticoagulated with heparin gtt Cardiology will discuss prison AC with patient cardiology input appreciated pt may need another agent support for rate control given current BP readings (2) Acute systolic (congestive) heart failure Current Visit: Yes Status: Acute Assessment and plan: Likely secondary to conversion from sinus to atrial fibrillation. Does not clinically appear to have severe CHF decompensation Lasix on hold due to renal function Renal function improved from previous day, will continue to monitor continue fluid restriction diet monitor I/Os daily weights monitor O2 sat O2 supplementation as needed LHC today by cardiology (3) ALIX (acute kidney injury) Current Visit: Yes Status: Acute Assessment and plan: Likely drug induced (diuretic therapy), can be also be secondary to the recurrent hypotensive episodes Lasix dose on hold Nephrology to further evaluate the patient and give clearance for [facility] Closely monitor BP, hold antihypertensive agents for SBP<120 (4) Diabetes mellitus Current Visit: Yes Status: Chronic Assessment and plan: Hyperglycemia persists Pt required 52units of additional insulin coverage on top of the basal and short acting insulin Will increase levemir to 43units BID and increase humalog to 15units TIDAC continue sliding scale insulin algorithm monitor FS and BG ADA diet Qualifiers: Diabetes mellitus type: type 2 Diabetes mellitus complication status: with hyperglycemia 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 Reports of having a restless night. States he was in pain due to his recent rib fractures and wasn' t able to wear CPAP overnight as he was NPO and his mouth was too dry to leave that on. Lasix was placed on hold by cardiology Given ALIX and the need for LHC, nephrology was consulted by cardiology for clearance for [facility] Nephrology to evaluate the patient today. Renal function improved from previous day - Constitutional Vitals: Temp Pulse Resp BP Pulse Ox 98.6 F 70 18 123/72 94 07/05/16 07:27 07/05/16 07:27 07/05/16 07:27 07/05/16 08:27 07/05/16 08:25 General appearance: Present: A&O X 3, morbidly obese, no acute distress - Head Head exam: Present: atraumatic, normocephalic - Eye Eye exam: Present: normal appearance, conjuntiva pink, sclera anicteric - Respiratory Respiratory exam: Absent: respiratory distress, wheezes - Cardiovascular Cardiovascular exam: Present: irregular rhythm, +S1, +S2 - GI/Abdominal GI/Abdominal exam: Present: distended (obese), normal bowel sounds, soft, no peritoneal signs. Absent: tenderness - Extremities Exam Extremities exam: Present: warm, radial pulses palpable and symetrical. Absent : calf tenderness, cyanotic, pedal edema - Neurological Exam Neurological exam: Present: alert, oriented X3 - Psychiatric Psychiatric exam: Present: normal affect, normal mood Internal Medicine: Result - Labs CBC & Chem 7: 07/05/16 02:41 07/05/16 02:41 Labs: Short CBC 07/05/16 Range/Units 02:41 WBC 9.3 (4.3-11.1) K/mcL Hgb 13.2 (12.9-16.9) g/dL Hct 40.8 (37.5-50.1) % Plt Count 284 (140-400) K/mcL Neutrophils # 6.5 (1.6-8.9) K/mcL BMP 07/05/16 02:41 Sodium 138 Potassium 4.1 Chloride 99 Carbon Dioxide 29 BUN 52 H Creatinine 1.62 H Glucose 207 H Calcium 9.6 - ABG Interpretation ABG results: PT/INR, D-dimer PT 13.0 Seconds (9.4-12.1) H 07/03/16 16:37 Consult Discharge Plan - Plan Referrals: Danielle Morocho CNP [Advanced Practice Nurse] - 07/13/16 3:15 pm
[2016-07-05] MEDS: *HR* HYDROcodone/Acet 5/325 mg TABLET PO PRN ×2 (09:47→20:30)
[2016-07-05 09:48] LABS: Activated Partial Thrombo Time 203.1 Seconds (26.0-36.0)
[2016-07-05] MEDS ORDERED: *HR* Heparin 10,000 UNIT/10 ML VIAL ONE (09:52)
[2016-07-05] MEDS ORDERED: 0.9 % Sodium Chloride 1,000 ML ONE ×2 (09:52→10:16)
[2016-07-05] MEDS ORDERED: Heparin 1,000 UNITS/500 mL NS 500 ML ONE (09:52)
[2016-07-05] MEDS ORDERED: Verapamil 5 MG/2 ML VIAL ONE (09:52)
[2016-07-05] MEDS ORDERED: Nitroglycerin 1,000 MCG/10 ML VIAL IV ONE (09:52)
--- NOTE | 2016-07-05 09:58 | Pre-Sedation Evaluation ---
Pre-sedation evaluation - Pre-sedation checklist Date of procedure: 07/05/16 Procedure: [facility] Recent Vitals: Last Vital Signs Temp 98.6 F 07/05/16 07:27 Pulse 70 07/05/16 07:27 Resp 18 07/05/16 07:27 BP 123/72 07/05/16 08:27 Pulse Ox 94 07/05/16 08:25 H&P (including ROS) documented in medical record: Yes Previous reaction to sedatives/anesthetics: No Dietary Status: NPO after Midnight Airway Assessment: Patient can open mouth completely, TMJ function normal Dentition: No loose teeth or bridges ASA Classification *see protocol: CLASS II-Mild systemic disease Plan of Care: Pt appropriate candidate for procedure/moderate/conscious sedation , Risks/benefits of procedure/sedation discussed w/ patient/family
[2016-07-05] MEDS ORDERED: 0.9 % Sodium Chloride 500 ML IVC ONE (10:00)
[2016-07-05] MEDS ORDERED: Amiodarone Premix 150 MG/100 ML BAG IVPB ONE (10:00)
[2016-07-05] MEDS ORDERED: Amiodarone Premix 360 MG/200 ML BAG IVC ONE (10:00)
--- NOTE | 2016-07-05 10:04 | Event Note ---
Date of Encounter: 07/05/16 Time of Encounter: 10:00 - Cardiology Event Note Laboratory Tests 07/05/16 02:41 Creatinine 1.62 H Est GFR (Non-Af Amer) 43 L Patient discussed and reviewed with Nephrology. Ok to proceed with LHC today from renal standpoint with recs fro mucomyst and gentle hydration. Nephrology c/ s pending. Cath pending today. All questions answered and patient and family agreeable. Per discussion with Dr. Dunlap, tele shows afib RVR with avg HR past 12 hrs 115. SBP 90's-120's, on BB-- will proceed with IV amio load and gtt. Further recs after LHC. Will need to address long-term AC once cath compledted, currently on IV Hep gtt.
[2016-07-05] MEDS ORDERED: *HR* FentaNYL (PF) 250 MCG/5 ML VIAL ONE (10:05)
[2016-07-05] MEDS ORDERED: *HR* Midazolam HCl 5 MG/5 ML VIAL IVP ONE (10:05)
[2016-07-05 10:23] LABS: Heparin anti-factor XA UFH 1.14 IU/mL (0.30-0.70)
--- NOTE | 2016-07-05 11:13 | Invasive Diagnostic Lab Proc ---
Name: David Nguyen Date of Study: 07/04/2016 Date: 1950 Ht: 72.0in Medical Record#: [id number] Age: 65 Wt: 348.33lb Gender: Male BSA: 2.7 Order #: [id number] BMI: 47.18 Physicians Procedure Physician: Gary Merrill MD, FACC Referring MD: Buzz Trotter DO Referring MD: Staff Name Position Time In Sites, Bethany RT (R) Monitor 10:20 AM Sherine Sánchez RT Scrub 10:20 AM Chris Lyn RN Medicine Tech 10:20 AM Indications Indication Abnormal Test - ECHO Procedures Performed Procedure L HRT ARTERY/VENTRICLE ANGIO Pre-Procedure Checklist Informed consent is complete signed and on chart. H\\T\\P is on chart. ID band is on and ID verified with patient. Patient NPO for procedure The procedure was described for the patient and questions were answered. Blood Pressure: 123/72 ECG is on chart. Rhythm: Atrial Fibrillation Plan of Care Patient will tolerate the procedure without complications. Adequate level of comfort will be maintained. Hemodynamics will remain stable Patient will recover from procedure without complications. Respiratory function will be maintained. Cardiac rhythm will remain stable. Patient temperature will be maintained. Patient and/or family have verbalized understanding of the procedure. Patient Education Intravenous Access Time IV Size Location DC'd Fluid/Drip Rate Units RN 09:46 AM 20g 1 1/4" Patent On Arrival Rt Forearm 0.9NaCl 25 ml/hr Chris Lyn RN Allergies No Known Allergies Vital Signs Time BP (mmHg) HR (bpm) O2 Sat. RR (bpm) LOC 09:45 AM 123 / 72 70 94 % 18 5 = Fully awake and oriented or at pre-proc level 10:32 AM / % 5 = Fully awake and oriented or at pre-proc level 10:32 AM / % 4 = Oriented but drowsy 10:28 AM 122 / 75 120 96 % 16 10:33 AM 127 / 68 126 95 % 17 10:38 AM 134 / 71 121 96 % 21 10:43 AM 102 / 67 116 98 % 18 10:48 AM 77 / 49 102 94 % 18 10:50 AM 94 / 61 78 93 % 16 10:53 AM 94 / 65 111 94 % 17 Procedural Medications Time Medication Dose Units Method Given By 10:31 AM Oxygen 2 L/min nasal cannula Chris Lyn RN 10:31 AM Versed 2 mg Intravenous Chris Lyn RN 10:31 AM Fentanyl 50 mcg Intravenous Chris Lyn RN 10:32 AM Heparin 3150 units/hour Intravenous 10:32 AM Oxygen 4 L/min nasal cannula Chris Lyn RN 10:42 AM Lidocaine 2% 0.5 ml Subcutaneous Gary Merrill MD, [facility] 10:42 AM Versed 1 mg Intravenous Chris Lyn RN 10:42 AM Fentanyl 25 mcg Intravenous Chris Lyn RN 10:46 AM Nitroglycerin 200 mcg Verapamil 2.5 mg Intraarterial Gary Merrill MD, [facility] ASA Classification: CLASS II- Mild systemic disease (i.e. well-controlled diabetes, hypertension, asthma, cigarette smoking) Juwan Score Preprocedure Postprocedure Activity 2- Moves 4 extremities sustained head lift Activity 2- Moves 4 extremities sustained head lift Circulation 2- SBP +/= 20 points of pre-anesthetic level Circulation 2- SBP +/= 20 points of pre-anesthetic level Consciousness 2- Awake and alert oriented x 3 Consciousness 2- Awake and alert oriented x 3 O2 Saturation 2- Able to maintain O2 satruation of 92% on room air O2 Saturation 2- Able to maintain O2 satruation of 92% on room air Respiratory 2- Able to deep breathe and cough well Respiratory 2- Able to deep breathe and cough well Total Score 10 Total Score 10 Contrast Agent: Isovue Diagnostic Contrast: 37 ml Total Contrast: 37 ml Fluoro Dose: 421 mGy Procedure Log Time Note Enter By 10:20 AM Pt arrived to [facility] [place] 2 at 10:20 tsites 10:20 AM Patient charges- Angio tray pack, Navilyst 3mm J, Pulse Oximetry and ACIST tubing and transducer tsites 10:20 AM Case Delayed No tsites 10:20 AM Physician arrived 10:20 tsites 10:20 AM Meet and greet completed tsites 10:20 AM Sign in performed according to hospital policy. tsites 10:20 AM Procedure start 10:20 tsites 10:20 AM Bethany Crockett RT (R) Position: Monitor Time in: 10:20 tsites 10:20 AM Sherine Sánchez RT Position: Scrub Time in: 10:20 tsites 10:21 AM Chris Lyn RN Position: Medicine Tech Time in: 10:20 tsites 10:31 AM Hair removed from procedure site in procedure lab using clippers. Right groin and right wrist prepped with Chloraprep by Chris Lyn RN, safety strap applied then patient was draped. Skin intact. tsites 10:31 AM Time: 10:31 Oxygen on at 2 L/min per nasal cannula by Chris Lyn RN tsites 10:31 AM Time: 10:31 Versed 2 mg Intravenous Given by Chris Lyn RN tsites 10:31 AM Time: 10:31 Fentanyl 50 mcg Intravenous Given by Chris Lyn RN tsites 10:32 AM Patient arrived at 10:32 with Heparin Intravenous drip @ 3150 units/hour tsites 10:32 AM Time: 10:32 Oxygen on at 4 L/min per nasal cannula by Chris Lyn RN tsites 10:32 AM Time: 10:32 Patient comfortable and pain free: Yes tsites 10:32 AM Time: 10:32LOC: 5 = Fully awake and oriented or at pre-proc level tsites 10:32 AM Clinical Presentation: Unstable angina tsites 10:42 AM Time out performed according to hospital policy tsites 10:42 AM Time: 10:42 0.5 ml Lidocaine 2% to right radial Subcutaneous Given by Gary Merrill MD, [facility] tsites 10:42 AM Time: 10:42 Versed 1 mg Intravenous Given by Chris Lyn RN tsites 10:43 AM Time: 10:42 Fentanyl 25 mcg Intravenous Given by Chris Lyn RN tsites 10:45 AM Access obtained by percutaneous puncture. 6Fr 10cm Terumo Glidesheath sheath placed in right Radial artery. [id number] tsites 10:46 AM Time: 10:46 Patient given 200 mcg Nitroglycerin, and 2.5 mg Verapamil Intraarterial by Gary Merrill MD, [facility] tsites 10:46 AM 5Fr TIG catheter inserted over the wire [facility] tsites 10:46 AM 0.035 260cm Navilyst 3mmJ wire [id number] tsites 10:48 AM Time: 10:32LOC: 4 = Oriented but drowsy tsites 10:48 AM Time: 10:32 Patient comfortable and pain free: Yes tsites 10:48 AM RCA angiography performed in multiple views. tsites 10:49 AM repositioning catheter tsites 10:49 AM LCA angiography performed in multiple views. tsites 10:50 AM Coronary Dominance: Co-dominant tsites 10:50 AM Lesion found in Mid LAD. Pre Stenosis: 20 Pre VALENCIA Flow: tsites 10:50 AM Lesion found in 1st Diagonal. Pre Stenosis: 50 Pre VALENCIA Flow: tsites 10:50 AM Mid/Distal Left Anterior Descending Coronary Artery and diagonal branches with 50% stenosis. If graft is supplying this area, 0 % stenosis tsites 10:51 AM Lesion found in Proximal Circumflex. Pre Stenosis: 50 Pre VALENCIA Flow: tsites 10:51 AM Circumflex, Obtuse Marginal, Left Posterior Descending, and Left Posterolateral Coronary Arteries with 50 % stenosis. If graft is supplying this area, 0 % stenosis tsites 10:51 AM wire reinserted catheter removed tsites 10:51 AM 5Fr Pigtail catheter inserted over the wire DNC tsites 10:51 AM Catheter selectively placed in left ventricle tsites 10:54 AM EDP measured tsites 10:54 AM Catheter removed tsites 10:55 AM Procedure completed at 10:55 tsites 10:55 AM Sign out completed: Radiation Dose 421 mGy Fluoro Time: 2.9 Isovue 370 - 500ml contrast 37 ml given by Gary Merrill MD, FACC. Complications: NoneCardiac Rehab Consult needed: NoConfirmed administered medications: Yes tsites 10:55 AM Isovue 370 - 500ml,1 Bottle(s) used. tsites 10:55 AM Arterial sheath pulled, Vasc Band closure device used and was Successful S/N. tsites 10:55 AM 12 ml air in Vasc Band. tsites 10:55 AM Post ECG Atrial Fibrillation tsites 10:55 AM Post Blood Pressure 94/65 tsites 10:55 AM 10:55 Post Pulses Rt Radial 2+ tsites 10:56 AM Information taught Cardiac Cath and Vasc Band tsites 10:56 AM Education needs Procedure, Plan of Care, and Responsibilities of Patient in Care tsites 10:56 AM Learning barriers :None tsites 10:56 AM Education Methods Verbal tsites 10:56 AM Education evaluation Able to repeat information tsites 10:56 AM Site status No bleeding/hematoma - Rt Wrist as reported by Sherine Sánchez RT at 10:56 tsites 10:59 AM Report given to talon ORELLANA Pt taken to 2N Room #11. 10:59 tsites 10:59 AM Delay to floor No tsites 10:59 AM Patient out of room: 10:59 tsites 10:59 AM Family placed in consult room. tsites Complications Complication None Hemodynamics Pressures Site Systolic/A Wave Diastolic/V Wave Mean AO 59 40 48 AO 85 63 72 LV 117 18 35 AO 113 76 93 LV 122 18 28 Post Procedure Information Blood Pressure: 94/65 mmHg Rhythm: Atrial Fibrillation Post procedural instructions were given Closure Device Time Device Success/Fail 07/05/2016 10:58:00 AM Mechanical Compression Successful Site Checks Time Location Status Staff Sheath In? Note 10:56 AM Rt Wrist No bleeding/hematoma Sherine Sánchez RT Pulses Time Site Pre-Procedure Post-Procedure Note 07/05/2016 9:46:00 AM Bilateral DP 2+ 07/05/2016 9:46:00 AM Bilateral radial 2+ 10:55:00 AM Rt Radial 2+ Updated by Bethany Crockett RT (R) on 07/05/2016 11:06:06 AM Bethany Crockett RT electronically signed on 07/05/2016 11:06:30 AM with status of Final
--- NOTE | 2016-07-05 11:37 | Nephrology Consult Note ---
Date of Encounter: 07/05/16 Time of Encounter: 11:35 Assessment and Plan (1) ALIX (acute kidney injury) Status: Acute Elevated SCr in the setting of Afib, CHF and diuretics use Agree with holding back on diuretics Agree with cardiac optimization Given improving SCr, can proceed with LHC today Can give minimal fluids audi-LHC Will initiate workup with US of kidney Will check urine studies Will check ISABELL and complements and SPEP and UPEP (2) Acute systolic (congestive) heart failure Status: Acute Per cardiology (3) Atrial fibrillation with RVR Status: Acute Per cardiology History of Present Illness - Reason for Consult Consult date: 07/05/16 Acute Kidney Injury, Chronic Kidney Disease Requesting physician: Aki Lebron - History of Present Illness 65 y o male with PMH of DM, HTN, CAD, DELMI and Afib admitted after an abnormal echo showing decreased EF down to 25% and was also neted in Afib with RVR. Renal consulted per cardiology's request for possible LHC given elevated SCr at 1.63, GFR 42 an increase from admission with SCr at 2.0. Patient reports being made aware by pcp his kidney function was at "30%" and he actually had an appointment pending to see me prior to admission. He was also receiving increased lasix dosing for lE edema as well. Pt seen and examined with present and discussed in great details pros and cons of LHC given renal dysfunction. Past Med Surg Social Fam HX - Past Medical History Medical history: arthritis, atrial fibrillation, CHF, diabetes, hyperlipidemia, hypertension Psychiatric history: anxiety, depression - Past Surgical History Surgical History: non-contributory - Social History Smoking Status: Never smoker Smokeless Tobacco Status: No Alcohol use: none, occasionally Drug use: none - Family History Mother Living Status: Cause of : OR Hx Family Cardiac Disorders: Yes (OR,smoker) Hx Family Cancer: Yes (Breast) Hx Family Endocrine Disorder: Yes (DM) Father Living Status: Hx Family Cancer: Yes (Lung, smoker) Medications and Allergies Insulin ASPART [Novolog Flexpen] 20 unit SQ TID 04/19/15 [History] HYDROcodone/Acet 5/325 mg [Macon 5-325 mg] 1 tab PO Q8H PRN 05/24/15 [History] Gabapentin [Neurontin] 100 mg PO TID 07/02/16 [History] Insulin Glargine,Hum.rec.anlog [Lantus Solostar] 50 unit SQ BID 07/02/16 [ History] Paroxetine [Paxil] 20 mg PO DAILY 07/02/16 [History] Trazodone HCl 100 mg PO HS 07/02/16 [History] metFORMIN [Glucophage] 500 mg PO BIDWM 07/02/16 [History] Amiodarone [Cordarone] 200 mg PO BID #60 tablet 07/07/16 [Rx] Apixaban [Eliquis] 5 mg PO BID #60 tablet 07/07/16 [Rx] Furosemide [Lasix] 40 mg PO DAILY #30 tablet 07/07/16 [Rx] Lidocaine Patch [Lidoderm 5% patch] 1 each TP Q24H #10 adh..patch 07/07/16 [Rx] Metoprolol XL (24 HR) Succ [Toprol Xl] 100 mg PO BID #120 tab.er.24h 07/07/16 [ Rx] Allergies No Known Allergies Allergy (Verified 07/02/16 15:36) Review of Systems All Systems: reviewed and no additional remarkable complaints except as stated ( 10 systems reviewed) Exam - Vital Signs Vital signs: Initial Vital Signs Temp Pulse Resp BP Pulse Ox 97.6 F 94 20 133/65 94 07/02/16 15:31 07/02/16 15:31 07/02/16 15:31 07/02/16 15:31 07/02/16 15:31 Vital Signs - Last 8 Hours Temp Pulse Resp BP Pulse Ox 07/05/16 11:23 98.4 F 80 18 84/43 94 07/05/16 08:27 123/72 07/05/16 08:25 94 07/05/16 07:27 98.6 F 70 18 90/63 94 07/05/16 04:20 98.5 F 102 18 126/88 92 Intake and Output 07/04/16 07/05/16 07/05/16 23:59 07:59 15:59 Intake Total 283 / 283 377 / 377 405 / 405 Output Total 600 / 600 200 / 200 275 / 275 Balance -317 / -317 177 / 177 130 / 130 Intake: IV Fluids 283 / 283 377 / 377 330 / 330 Heparin 25,000 UNIT/500 283 / 283 377 / 377 330 / 330 ML D5W 25,000 unit In 500 ml @ 6.04 UNIT/KG/HR 19. 908 mls/hr IVC .Q24H MAGGI Rx#:[id number] Oral 0 / 0 75 / 75 Output: Urine 600 / 600 200 / 200 275 / 275 Other: Weight 157.6 kg Blood Glucose* 227 315 162 Patient Weight 07/05/16 23:59 Weight 157.6 kg - General Appearance General appearance: well-developed, well-nourished (NAD) EENT: ATNC, mucous membranes moist Neck: no JVD, supple Additional Comments: decreased BS bases bilat Cardiology: edema (LE bilat), irregular rhythm, normal S1, normal S2 Gastrointestinal: no tenderness, no guarding, obese Integumentary: no rash, warm and dry Neurologic: no focal deficit Musculoskeletal: no deformities Psychiatric: mood/affect appropriate, cooperative Results - Lab Results 07/06/16 06:29 07/07/16 04:08 Most recent lab results Calcium 9.6 mg/dL (8.6-10.8) 07/05/16 02:41 Phosphorus 3.8 mg/dL (2.3-4.7) 07/05/16 02:41 Magnesium 2.3 mg/dL (1.6-2.6) 07/05/16 02:41 Consult Discharge Plan - Plan Instructions: Heart Failure (DC), Atrial Fibrillation (DC) Referrals: Danielle Morocho CNP [Advanced Practice Nurse] - 07/13/16 3:15 pm Aki Lebron CNP [Advanced Practice Nurse] - (Online referral made for patient. Patient informed to expect phone call on number they provided in the next 1 to 2 business days. If not call number listed for cardiology and make appt in 1 to 2 weeks to follow up.) Prescriptions: Amiodarone [Cordarone] 200 mg PO BID #60 tablet Apixaban [Eliquis] 5 mg PO BID #60 tablet Furosemide [Lasix] 40 mg PO DAILY #30 tablet Lidocaine Patch [Lidoderm 5% patch] 1 each TP Q24H #10 adh..patch Metoprolol XL (24 HR) Succ [Toprol Xl] 100 mg PO BID #120 tab.er.24h
[2016-07-05] MEDS ORDERED: *HR* Heparin 5,000 UNIT/ML VIAL IVP PRN ×4 (12:01→12:07)
[2016-07-05] MEDS ORDERED: Heparin 25,000 UNIT/500 ML D5W 25,000 UNIT/500 ML MLS IVC SCH ×2 (12:15)
--- NOTE | 2016-07-05 12:54 | Event Note ---
Date of Encounter: 07/05/16 Time of Encounter: 13:00 - Cardiology Event Note Per discussion with Dr. Merrill, no significant lesions on catheterization and suspected nonischemic cardiomyopathy suspect tachycardia induced. Transferred to [facility] with initiation of amiodarone pending. Right wrist site currently stable. Will resume heparin drip. We'll reevaluate kidney function in the morning. Patient with a [id number] = 3-4 (soon to be age 66). Will need to determine if would like to initiate Coumadin versus possibly Eliquis for primary stroke prevention.
[2016-07-05 13:44] LABS: Activated Partial Thrombo Time 167.8 Seconds (26.0-36.0)
[2016-07-05 13:51] LABS: Heparin anti-factor XA UFH 0.91 IU/mL (0.30-0.70)
[2016-07-05] MEDS: *HR* Acetylcysteine 20% 600 MG/3 ML ORAL SYRINGE PO SCH (15:39)
[2016-07-05 19:58] LABS: Bilirubin,Urine Negative (Negative); Blood,Urine Negative (Negative); Clarity,Urine Clear (Clear); Color,Urine Yellow (Yellow); Glucose,Urine (UA) Normal (Normal); Ketones,Urine Negative (Negative); Leukocyte Esterase,Urine Negative (Negative); Nitrite,Urine Negative (Negative); Protein,Urine Negative (Neg-Trace); Specific Gravity,Urine 1.024 (1.010-1.025); Urobilinogen,Urine Normal (Normal)
[2016-07-05 20:05] LABS: Creatinine,Urine 72 mg/dL; Microalbum/Creatinine Ratio,Ur 7 (0-30); Microalbumin,Urine < 5 mg/L; Protein/Creatinine Ratio,Urine 0.13 mg/mg (0-0.20)
[2016-07-05] MEDS: Amiodarone Premix 360 MG/200 ML BAG IVC SCH (21:34)
[2016-07-05] MEDS: traZODone 50 MG TABLET PO SCH (21:35)
[2016-07-06] MEDS: *HR* Acetylcysteine 20% 600 MG/3 ML ORAL SYRINGE PO SCH ×3 (00:12→22:45)
[2016-07-06 05:18] LABS: BUN/Creatinine Ratio 26 (6-26); Calcium 9.3 mg/dL (8.6-10.8); Carbon Dioxide 19 mEq/L (19-29); Chloride 103 mEq/L (98-109); Glucose 180 mg/dL (70-99); Magnesium 2.1 mg/dL (1.6-2.6); Osmolality,Calculated 291 (280-300); Potassium 4.4 mEq/L (3.5-4.5); Sodium 135 mEq/L (136-145); eGFR For African Americans > 60 (> 60); eGFR For Non-African Americans > 60 (> 60)
[2016-07-06 05:29] LABS: Blood Urea Nitrogen 30 mg/dL (8-26)
[2016-07-06 06:40] LABS: Basophils # 0.1 K/mcL (0.0-0.2); Basophils % 0.5 %; Eosinophils # 0.2 K/mcL (0.0-0.6); Eosinophils % 1.8 %; Hemoglobin 13.1 g/dL (12.9-16.9); Immature Granulocytes % 0.5 % (0-4); Immature Platelets 3.3 % (1.1-6.1); Lymphocytes # 1.8 K/mcL (0.6-4.6); Lymphocytes % 17.1 %; Mean Corpuscular HGB Conc 34.5 g/dL (31.6-35.5); Mean Corpuscular Hemoglobin 30.3 pg (28.0-33.3); Mean Corpuscular Volume 87.8 fL (83.0-100.0); Mean Platelet Volume 10.1 fL (9.4-12.4); Monocytes % 9.8 %; Neutrophils # 7.3 K/mcL (1.6-8.9); Platelet Count 262 K/mcL (140-400); Red Blood Count 4.33 M/mcL (4.19-5.50); Red Cell Distribution Width 15.5 % (11.5-14.5); Segmented Neutrophils % 70.3 %
--- NOTE | 2016-07-06 08:11 | Cardiology Progress Note ---
Date of Encounter: 07/06/16 Time of Encounter: 09:00 Assessment and Plan (1) Atrial fibrillation with RVR Current Visit: Yes Status: Acute Per Cardiology: Cardizem gtt now off-- recommend avoid with low EF. On Toprol XL 50mg PO BID. Average heart rate the past 12 hours 106, atrial fibrillation. Currently in the 110's on telemetry afib. Systolic blood pressures in the . Will continue to monitor HR and SBP 100's - 120's. Off ACEI/HCTZ. Discussed with Dr. Dunlap, we' ll start amiodarone 200 mg by mouth twice a day this evening once drip induced and increased Toprol-XL to 75 mg by mouth twice a day and monitor heart rate and blood pressure closely. At least discussion with patient and family today and patient is willing to remain hospitalized until rate controlled. Regarding long-term anticoagulation, on IV heparin gtt. I had lengthy discussion with patient and family regarding long-term anticoagulation and patient interested in exploring Coumadin versus Eliquis-- we'll perform quintero check. If affordable, will consider starting Eliquis. Of note, patient is [employer]. (2) Acute systolic (congestive) heart failure Current Visit: Yes Status: Acute Per Cardiology: TTE done on 07/02/2016 shows severely dilated right atrium, global hypokinesis, ejection fraction 25-30%. No prior echocardiogram for comparison. CHF initially diagnosed in 2008 with prior episode of A. fib that required multiple cardioversions; however, pt states he did not need Lasix again until a few years ago. Had recent lasix increase by PCP. Euvolemic on exam. Off lasix for now d/t ALIX. On strict I&O, daily weights, 1.5 L fluid restriction. (3) ALIX (acute kidney injury) Current Visit: Yes Status: Acute Per Cardiology: No previous creatinines available for review. Currently appears to have acute kidney injury. Peak creat. 2.03, now 1.17-- stable s/p cath. Nephrology following. Discussion w patient/family: The assessment and plan as outlined above was discussed with the patient and/or family members who expressed understanding and agreement. All questions were answered. Thank you for involving us in the care of your patient. Please call with any questions. Subjective Principal diagnosis: Afib RVR Interval history: Patient denies any chest pain, palpitations, shortness of breath. Reports fatigue about baseline. Reports difficulty sleeping throughout the night due to IV beeping and frequent interruptions. Denies any concerns from his right wrist site from catheterization. Patient fairly adamant he was to go home today. Objective Vital Signs, Last 4 Hours Temp Pulse Resp BP Pulse Ox 07/06/16 07:41 98.2 F 103 18 109/86 94 07/06/16 04:32 98.5 F 105 20 129/106 96 General: Conversant, No Apparent Distress HEENT: Atraumatic, Normocephaly, Mucus Membranes Moist Cardiac: No Murmur, Other (Irregularly irregular) Lungs: Normal Breath Sounds, No Wheeze, Rales, Rhonchi Neuro: Alert and responsive, No focal deficits noted Abdomen: Soft, Non-Tender Skin: No rashes noted on visualized skin, Other (Right wrist site dry and intact , no hematoma, no ecchymosis, right radial pulse 2+ palpable) Musculoskeletal: No Chest Wall Tenderness Extremities: No Clubbing, No Cyanosis, No Edema, Normal Pulses Results 07/06/16 06:29 07/06/16 04:21 Lab Results Laboratory Tests 07/06/16 04:21 Creatinine 1.17 Est GFR (Non-Af Amer) > 60 Active Medications Acetaminophen/Hydrocodone Bitart (Sewickley 5-325 Mg) 1 tab PO Q8H PRN PRN Reason: Pain Stop: 01/01/17 19:12 Last Admin: 07/06/16 11:09 Dose: 1 tab Acetylcysteine (Acetylcysteine 20%) 600 mg PO Q12H MAGGI Stop: 07/06/16 22:01 Last Admin: 07/06/16 00:12 Dose: 600 mg Amiodarone HCl (Cordarone) 200 mg PO DAILY MAGGI Stop: 01/06/17 21:01 Dextrose/Water (Dextrose 50% (Syg)) 25 ml IVP AD PRN PRN Reason: Hypoglycemia Stop: 01/01/17 19:18 Diphenhydramine HCl (Benadryl) 25 mg PO HS PRN PRN Reason: Insomnia Stop: 01/02/17 14:52 Last Admin: 07/03/16 23:50 Dose: 25 mg Gabapentin (Neurontin) 100 mg PO TID MAGGI Stop: 01/01/17 21:01 Last Admin: 07/06/16 08:20 Dose: 100 mg Glucagon (Glucagen) 1 mg IM ONCE PRN PRN Reason: Hypoglycemia Stop: 01/01/17 19:18 Glucose (Gluctose) 15 gm PO ONCE PRN PRN Reason: Hypoglycemia Stop: 01/01/17 19:18 Glucose (Gluctose) 30 gm PO ONCE PRN PRN Reason: Hypoglycemia Stop: 01/01/17 19:18 Heparin Sodium (Porcine) (Heparin) 9,000 unit IVP Q6HR PRN PRN Reason: SEE COMMENTS Stop: 01/04/17 12:08 Heparin Sodium (Porcine) (Heparin) 4,500 unit IVP Q6H PRN PRN Reason: SEE COMMENTS Stop: 01/04/17 12:08 Last Admin: 07/06/16 05:25 Dose: 4,500 unit Dextrose (Dextrose 5%) 1,000 mls @ 100 mls/hr IVC .Q10H PRN PRN Reason: HYPOGLYCEMIA Stop: 01/01/17 20:36 Amiodarone HCl/Dextrose (Amiodarone Drip Premix 360mg/200ml) 360 mg in 200 mls @ 16.667 mls/hr IVC CONT MAGGI PRN Reason: 0.5 MG/MIN Stop: 01/04/17 10:01 Last Admin: 07/06/16 08:21 Dose: 0.5 mg/min, 16.667 mls/hr Heparin Sodium/Dextrose (Heparin 25,000 Unit/500 Ml D5w) 25,000 unit in 500 mls @ 44.128 mls/hr IVC .[id number] MAGGI; 14 UNIT/KG/HR PRN Reason: Protocol Stop: 01/04/17 12:16 Last Titration: 07/06/16 05:21 Dose: 2.85 unit/kg/hr, 9 mls/hr Insulin Detemir (Levemir) 43 unit SQ BID MAGGI Stop: 01/04/17 21:01 Last Admin: 07/06/16 08:20 Dose: 43 unit Insulin Human Lispro (Humalog) 0 units SQ TIDAC MAGGI PRN Reason: Protocol Stop: 01/02/17 12:01 Last Admin: 07/05/16 17:29 Dose: 6 units Insulin Human Lispro (Humalog) 0 units SQ HS MAGGI PRN Reason: Protocol Stop: 01/02/17 21:01 Last Admin: 07/05/16 21:34 Dose: Not Given Insulin Human Lispro (Humalog) 15 units SQ TIDWM [facility] Stop: 01/04/17 09:33 Last Admin: 07/05/16 17:29 Dose: 15 units Metoprolol Succinate (Toprol Xl) 25 mg PO ONCE ONE Stop: 07/06/16 11:31 Metoprolol Succinate (Toprol Xl) 75 mg PO BID [facility] Stop: 01/05/17 21:01 Naloxone HCl (Narcan) 0.4 mg IVP Q2MIN PRN PRN Reason: Opioid Reversal Stop: 01/01/17 19:06 Paroxetine HCl (Paxil) 20 mg PO DAILY MAGGI PRN Reason: Protocol Stop: 01/02/17 09:01 Last Admin: 07/06/16 08:21 Dose: 20 mg Trazodone HCl (Trazodone) 100 mg PO HS [facility] Stop: 01/01/17 21:01 Last Admin: 07/05/16 21:35 Dose: 100 mg - EKG Interpretation EKG results cardiology: other (24-hour telemetry reviewed with heart rate remaining in A. fib currently in the 100s to 120s and average heart rate the past 12 hours 106) Consult Discharge Plan - Plan Referrals: Danielle Morocho, YOLI [Advanced Practice Nurse] - 07/13/16 3:15 pm
[2016-07-06] MEDS: Gabapentin 100 MG CAPSULE PO SCH ×3 (08:20→20:12)
[2016-07-06] MEDS: Insulin DETEMIR 100 UNIT/ML X5UNITS SQ SCH ×2 (08:20→20:12)
[2016-07-06] MEDS: Amiodarone Premix 360 MG/200 ML BAG IVC SCH (08:21)
[2016-07-06] MEDS: Metoprolol XL (24 HR) Succ 50 MG TAB.ER.24H PO SCH ×2 (08:21→20:11)
[2016-07-06] MEDS: *HR* HYDROcodone/Acet 5/325 mg TABLET PO PRN ×2 (11:09→20:24)
[2016-07-06] MEDS ORDERED: Metoprolol XL (24 HR) Succ 25 MG TAB.ER.24H PO ONE (11:30)
[2016-07-06] MEDS: Insulin LISPRO 300 UNITS/3 ML VIAL SQ SCH ×7 (11:34→20:50)
--- NOTE | 2016-07-06 11:50 | Internal Med Progress Note ---
Date of Encounter: 07/06/16 Time of Encounter: 10:15 - Assessment and plan (1) ALIX (acute kidney injury) Current Visit: Yes Status: Acute Assessment and plan: Renal function improving. BUN 30, creatinine 1.17 today. We will continue to follow renal function especially as patient received contrast with cardiac catheterization yesterday. (2) Acute systolic (congestive) heart failure Current Visit: Yes Status: Acute Assessment and plan: Does not appear to be in overt failure. Saturating well on room air. Lasix on hold due to acute kidney injury. May resume Lasix once renal function stabilizes (3) Atrial fibrillation with RVR Current Visit: Yes Status: Acute Assessment and plan: Has been started on amiodarone per cardiology recommendations. He will be transitioned to oral amiodarone later today. Remains in A. fib (4) Diabetes mellitus Current Visit: Yes Status: Chronic Assessment and plan: Blood sugars are still elevated. We will increase insulin regimen. Increase Levemir dosage to 50 units subcutaneous twice a day Qualifiers: Diabetes mellitus type: type 2 Diabetes mellitus complication status: with hyperglycemia Diabetes mellitus mcc insulin use: with oil heaterman use Qualified Code(s): E11.65 - Type 2 diabetes mellitus with hyperglycemia; Z79.4 - termite inspector (current) use of insulin (5) Morbid obesity with BMI of 45.0-49.9, adult Current Visit: Yes Status: Chronic (6) DELMI (obstructive sleep apnea) Current Visit: Yes Status: Chronic - Subjective Interval history: Patient is currently sleeping and feels very tired due to lack of sleep over the past several days. Denies any chest pain or shortness of breath. No nausea or vomiting. No palpitations. Currently on amiodarone drip. - Constitutional Vitals: Temp Pulse Resp BP Pulse Ox 98.3 F 110 18 112/90 94 07/06/16 11:41 07/06/16 11:41 07/06/16 11:41 07/06/16 11:41 07/06/16 11:41 General appearance: Present: A&O X 3, morbidly obese, no acute distress, answers questions appropriately - Respiratory Respiratory exam: Present: CTAB. Absent: accessory muscle use, rales, rhonchi, wheezes - Cardiovascular Cardiovascular exam: Present: irregular rhythm, +S1, +S2, tachycardia. Absent: diastolic murmur, gallop, rubs, systolic murmur - GI/Abdominal GI/Abdominal exam: Present: normal bowel sounds, soft, no peritoneal signs. Absent: distended, tenderness - Extremities Exam Extremities exam: Present: pedal edema (Trace bilateral), warm, radial pulses palpable and symetrical. Absent: calf tenderness, cyanotic - Neurological Exam Neurological exam: Present: alert, oriented X3, no focal deficits, strengths equal and symetr throughout. Absent: facial droop, speech deficit - Skin Skin exam: Present: dry, intact Internal Medicine: Result - Labs CBC & Chem 7: 07/06/16 06:29 07/06/16 04:21 Labs: Short CBC 07/06/16 Range/Units 06:29 WBC 10.3 (4.3-11.1) K/mcL Hgb 13.1 (12.9-16.9) g/dL Hct 38.0 (37.5-50.1) % Plt Count 262 (140-400) K/mcL Neutrophils # 7.3 (1.6-8.9) K/mcL BMP 07/06/16 04:21 Sodium 135 L Potassium 4.4 Chloride 103 Carbon Dioxide 19 BUN 30 H D Creatinine 1.17 Glucose 180 H Calcium 9.3 Urine 07/05/16 Range/Units 19:30 Urine Color Yellow (Yellow) Urine Clarity Clear (Clear) Urine pH 6.0 (5.0-8.0) pH Units Ur Specific [place] 1.024 (1.010-1.025) Urine Protein Negative (Neg-Trace) mg/dL Urine Glucose (UA) Normal (Normal) mg/dL - ABG Interpretation ABG results: PT/INR, D-dimer PT 13.0 Seconds (9.4-12.1) H 07/03/16 16:37 Consult Discharge Plan - Plan Referrals: Danielle Morocho, [employer] [Advanced Practice Nurse] - 07/13/16 3:15 pm - Attending Attestation This document has been at least partially created by [employer] recognition technology by Dr. Jett. Errors in grammar, wording or other phrases may exist. If errors are found after the documentation is signed, they will be addressed individually in the addendum section of this document when appropriate.
--- NOTE | 2016-07-06 12:45 | Event Note ---
Date of Encounter: 07/06/16 Time of Encounter: 12:45 - Cardiology Event Note Coats check completed with outpatient [facility] pharmacy and cost noted to be $0 per month. Discussed and reviewed with patient and and agreeable to proceed with Eliquis 5mg PO BID. Will initiate and discontinue IV heparin. We' ll monitor overnight for rate control with conversion of IV amiodarone to by mouth amiodarone.
[2016-07-06] MEDS: APIXABAN 5 MG TABLET PO SCH ×2 (13:40→20:12)
--- NOTE | 2016-07-06 19:48 | Nephrology Progress Note ---
Date of Encounter: 07/06/16 Time of Encounter: 16:00 - Assessment and Plan (1) ALIX (acute kidney injury) Status: Acute SCr drastically improved at 1.17, GFR >60 UOP acceptable Continue to avoid nephrotoxins if possible Await labs results (2) Acute systolic (congestive) heart failure Status: Acute Per cardiology (3) Atrial fibrillation with RVR Status: Acute Per cardiology Subjective Principal diagnosis: Afib RVR Interval history: Pt seen and examined with no new complaints. s/p LHC with results noted. Objective - Vital Signs Vital signs: Vital Signs Temp Pulse Resp BP Pulse Ox 07/06/16 16:22 98.0 F 101 20 117/63 97 07/06/16 15:27 106 07/06/16 12:00 104 07/06/16 11:41 98.3 F 110 18 112/90 94 07/06/16 08:10 115 96 07/06/16 07:41 98.2 F 103 18 109/86 94 07/06/16 04:32 98.5 F 105 20 129/106 96 07/06/16 03:00 102 07/05/16 23:54 98.6 F 93 20 92/74 96 07/05/16 21:00 98 Intake and Output 07/06/16 07/06/16 07/06/16 07:59 15:59 23:59 Intake Total 110 / 110 912 / 912 120 / 120 Output Total 950 / 950 Balance -840 / -840 912 / 912 120 / 120 Intake: IV Fluids 110 / 110 372 / 372 Amiodarone Drip Premix 274 / 274 360mg/200mL 360 mg In 200 ml @ 0.5 MG/MIN 16.667 mls/hr IVC CONT [facility] Rx#: [id number] Heparin 25,000 UNIT/500 110 / 110 98 / 98 ML D5W 25,000 unit In 500 ml @ 14 UNIT/KG/HR 44. 128 mls/hr IVC .[id number] [facility] Rx#:[id number] Oral 540 / 540 120 / 120 Output: Urine 950 / 950 Other: Meal Lunch Dinner Percent of Meal Consumed 90% 0% Weight 160.5 kg Blood Glucose* 249 253 227 Patient Weight 07/06/16 23:59 Weight 160.5 kg - General Appearance General appearance: Present: well-developed, well-nourished (NAD) EENT: Present: ATNC, mucous membranes moist Neck: Present: no JVD, supple Additional Comments: improved areation ant bilat Cardiology: Present: edema (LE bilat), irregular rhythm, normal S1, normal S2 Gastrointestinal: Present: no tenderness, no guarding, obese Integumentary: Present: no rash, warm and dry Neurologic: Present: no focal deficit Musculoskeletal: Present: no deformities Psychiatric: Present: mood/affect appropriate, cooperative - Lab 07/06/16 06:29 07/07/16 04:08 Most recent lab results Calcium 9.3 mg/dL (8.6-10.8) 07/06/16 04:21 Phosphorus 3.0 mg/dL (2.3-4.7) 07/06/16 04:21 Magnesium 2.1 mg/dL (1.6-2.6) 07/06/16 04:21 Urine Creatinine 72 mg/dL 07/05/16 19:30 Urine Total Protein 9 mg/dL (1-14) 07/05/16 19:30 Consult Discharge Plan - Plan Instructions: Heart Failure (DC), Atrial Fibrillation (DC) Referrals: Danielle Morocho CNP [Advanced Practice Nurse] - 07/13/16 3:15 pm Aki Lebron CNP [Advanced Practice Nurse] - (Online referral made for patient. Patient informed to expect phone call on number they provided in the next 1 to 2 business days. If not call number listed for cardiology and make appt in 1 to 2 weeks to follow up.) Prescriptions: Amiodarone [Cordarone] 200 mg PO BID #60 tablet Apixaban [Eliquis] 5 mg PO BID #60 tablet Furosemide [Lasix] 40 mg PO DAILY #30 tablet Lidocaine Patch [Lidoderm 5% patch] 1 each TP Q24H #10 adh..patch Metoprolol XL (24 HR) Succ [Toprol Xl] 100 mg PO BID #120 tab.er.24h
[2016-07-06] MEDS: traZODone 50 MG TABLET PO SCH (20:11)
[2016-07-06] MEDS: *HR* Amiodarone 200 MG TABLET PO SCH (20:12)
[2016-07-07 04:31] LABS: BUN/Creatinine Ratio 20 (6-26); Blood Urea Nitrogen 22 mg/dL (8-26); Calcium 9.5 mg/dL (8.6-10.8); Carbon Dioxide 27 mEq/L (19-29); Chloride 105 mEq/L (98-109); Glucose 140 mg/dL (70-99); Osmolality,Calculated 298 (280-300); Potassium 4.1 mEq/L (3.5-4.5); Sodium 141 mEq/L (136-145); eGFR For African Americans > 60 (> 60); eGFR For Non-African Americans > 60 (> 60)
[2016-07-07] MEDS: Gabapentin 100 MG CAPSULE PO SCH ×2 (08:23→15:20)
[2016-07-07] MEDS: Metoprolol XL (24 HR) Succ 50 MG TAB.ER.24H PO SCH (08:23)
[2016-07-07] MEDS: *HR* Amiodarone 200 MG TABLET PO SCH (08:23)
[2016-07-07] MEDS: *HR* HYDROcodone/Acet 5/325 mg TABLET PO PRN (08:24)
[2016-07-07] MEDS: Insulin LISPRO 300 UNITS/3 ML VIAL SQ SCH ×6 (08:24→16:35)
[2016-07-07] MEDS: Insulin DETEMIR 100 UNIT/ML X5UNITS SQ SCH (08:24)
[2016-07-07] MEDS: APIXABAN 5 MG TABLET PO SCH (08:24)
[2016-07-07] MEDS ORDERED: Metoprolol XL (24 HR) Succ 25 MG TAB.ER.24H PO ONE (10:04)
--- NOTE | 2016-07-07 10:24 | Cardiology Progress Note ---
Date of Encounter: 07/07/16 Time of Encounter: 10:00 Assessment and Plan (1) Atrial fibrillation with RVR Current Visit: Yes Status: Acute Per Cardiology: Cardizem gtt now off-- recommend avoid with low EF. On Toprol XL 75mg PO BID and amio 200mg PO BID. Average heart rate the past 12 hours 105, atrial fibrillation. Currently in the 90's-100's on telemetry afib. Systolic blood pressures in the 100's-110's. Off ACEI/HCTZ. Will increase Toprol XL to 100mg PO BID, if HR and BP stable, consider DC to home this afternoon. Regarding long-term anticoagulation, has a [id number]= 3-4 (soon to be 66). Now on Eliquis 5mg PO BID. Denies any active bleeding or blood loss. Of note, patient is Quaker. (2) Acute systolic (congestive) heart failure Current Visit: Yes Status: Acute Per Cardiology: TTE done on 07/02/2016 shows severely dilated right atrium, global hypokinesis, ejection fraction 25-30%. No prior echocardiogram for comparison. CHF initially diagnosed in 2008 with prior episode of A. fib that required multiple cardioversions; however, pt states he did not need Lasix again until a few years ago. Had recent lasix increase by PCP. Euvolemic on exam. Off lasix for now d/t ALIX. On strict I&O, daily weights, 1.5 L fluid restriction. LHC showed no significant lesions per Dr. Merrill. (3) ALIX (acute kidney injury) Current Visit: Yes Status: Acute Per Cardiology: No previous creatinines available for review. Currently appears to have acute kidney injury. Peak creat. 2.03, now normalized-- stable s/p cath. Nephrology following. Discussion w patient/family: The assessment and plan as outlined above was discussed with the patient and/or family members who expressed understanding and agreement. All questions were answered. Thank you for involving us in the care of your patient. Please call with any questions. Subjective Principal diagnosis: Afib RVR Interval history: Patient denies any chest pain, palpitations, shortness of breath. Reports fatigue about baseline. Reports slept better last night. Objective Vital Signs, Last 4 Hours Pulse Resp BP Pulse Ox 07/07/16 08:00 92 07/07/16 07:13 92 16 114/99 96 General: Conversant, No Apparent Distress HEENT: Atraumatic, Normocephaly, Mucus Membranes Moist Neck: No JVD, Normal carotid pulses Cardiac: No Murmur, Other (Irregularly irregular) Lungs: Normal Breath Sounds, No Wheeze, Rales, Rhonchi Neuro: Alert and responsive, No focal deficits noted Abdomen: Soft, Non-Tender Skin: No rashes noted on visualized skin Musculoskeletal: No Chest Wall Tenderness Extremities: No Clubbing, No Cyanosis, No Edema, Normal Pulses Results 07/06/16 06:29 07/07/16 04:08 Lab Results Laboratory Tests 07/07/16 04:08 Creatinine 1.11 Est GFR (Non-Af Amer) > 60 Active Medications Acetaminophen/Hydrocodone Bitart ([place] 5-325 Mg) 1 tab PO Q8H PRN PRN Reason: Pain Stop: 01/01/17 19:12 Last Admin: 07/07/16 08:24 Dose: 1 tab Amiodarone HCl (Cordarone) 200 mg PO BID [facility] Stop: 01/05/17 21:01 Last Admin: 07/07/16 08:23 Dose: 200 mg Apixaban (Eliquis) 5 mg PO BID [facility] Stop: 01/05/17 12:46 Last Admin: 07/07/16 08:24 Dose: 5 mg Dextrose/Water (Dextrose 50% (Syg)) 25 ml IVP AD PRN PRN Reason: Hypoglycemia Stop: 01/01/17 19:18 Diphenhydramine HCl (Benadryl) 25 mg PO HS PRN PRN Reason: Insomnia Stop: 01/02/17 14:52 Last Admin: 07/06/16 20:11 Dose: 25 mg Gabapentin (Neurontin) 100 mg PO TID [facility] Stop: 01/01/17 21:01 Last Admin: 07/07/16 08:23 Dose: 100 mg Glucagon (Glucagen) 1 mg IM ONCE PRN PRN Reason: Hypoglycemia Stop: 01/01/17 19:18 Glucose (Gluctose) 15 gm PO ONCE PRN PRN Reason: Hypoglycemia Stop: 01/01/17 19:18 Glucose (Gluctose) 30 gm PO ONCE PRN PRN Reason: Hypoglycemia Stop: 01/01/17 19:18 Dextrose (Dextrose 5%) 1,000 mls @ 100 mls/hr IVC .Q10H PRN PRN Reason: HYPOGLYCEMIA Stop: 01/01/17 20:36 Insulin Detemir (Levemir) 50 unit SQ BID [facility] Stop: 01/04/17 21:01 Last Admin: 07/07/16 08:24 Dose: 50 unit Insulin Human Lispro (Humalog) 0 units SQ TIDAC [facility] PRN Reason: Protocol Stop: 01/02/17 12:01 Last Admin: 07/07/16 08:24 Dose: Not Given Insulin Human Lispro (Humalog) 0 units SQ HS [facility] PRN Reason: Protocol Stop: 01/02/17 21:01 Last Admin: 07/06/16 20:50 Dose: Not Given Insulin Human Lispro (Humalog) 15 units SQ TIDWM [facility] Stop: 01/04/17 09:33 Last Admin: 07/07/16 08:24 Dose: 15 units Lidocaine HCl (Lidoderm 5% Patch) 1 each TP Q24H [facility] Stop: 01/06/17 02:22 Last Admin: 07/07/16 02:29 Dose: 1 each Metoprolol Succinate (Toprol Xl) 100 mg PO BID [facility] Stop: 01/06/17 21:01 Naloxone HCl (Narcan) 0.4 mg IVP Q2MIN PRN PRN Reason: Opioid Reversal Stop: 01/01/17 19:06 Paroxetine HCl (Paxil) 20 mg PO DAILY [facility] PRN Reason: Protocol Stop: 01/02/17 09:01 Last Admin: 07/07/16 08:23 Dose: 20 mg Trazodone HCl (Trazodone) 100 mg PO HS [facility] Stop: 01/01/17 21:01 Last Admin: 07/06/16 20:11 Dose: 100 mg - EKG Interpretation EKG results cardiology: other (Currently A. fib on telemetry 90s to 100s, telemetry reviewed her chart for the past 12 hours 105) Consult Discharge Plan - Plan Referrals: Danielle Morocho CNP [Advanced Practice Nurse] - 07/13/16 3:15 pm
--- NOTE | 2016-07-07 12:26 | Discharge Summary ---
Date of Encounter: 07/07/16 Time of Encounter: 12:26 - Discharge Diagnosis (1) Atrial fibrillation with RVR Priority: Primary Status: Acute Comments: HR eventually controlled with toprol 100mg bid, amiodarone Started on eliquis by cardiology continue same Scripts made for new medications (2) Acute systolic (congestive) heart failure Priority: Primary Status: Acute Comments: TTE done on 07/02/2016 shows severely dilated right atrium, global hypokinesis, ejection fraction 25-30%. No prior echocardiogram for comparison. CHF initially diagnosed in 2008 with prior episode of A. fib that required multiple cardioversions; however, pt states he did not need Lasix again until a few years ago. Euvolemic on exam through out admission Lasix was held due to ALIX but his renal function has been stable for over 48 hrs Will discharge home on 40mg po daily of lasix Continue low sodium diet and fluid restrction at home Follow up with cardiology within a week Follow up with PCP to consider restarting ACEI after monitoring renal function on current dose of lasix (3) ALIX (acute kidney injury) Priority: Primary Status: Acute Comments: Acute kidney injury was multifactorial including use of ciara inhibitors and diuretics including lisinopril, hydrochlorothiazide, and Lasix. Patient also had multiple episodes of hypotension secondary to A. fib with RVR. His AKA has improved and his creatinine is back to baseline with IV fluid hydration. Patient is discharged on half dose of his routine home dose of Lasix-40mg daily. CIARA inhibitors and hydrochlorothiazide have been discontinued Follow-up with PCP for monitoring of renal function. (4) Diabetes mellitus Priority: Secondary Status: Chronic Comments: Presented with hyperglycemia which has improved with insulin adjustment. Fingersticks acceptable Continue metformin at home. Continue ADA diet. Qualifiers: Diabetes mellitus type: type 2 Diabetes mellitus complication status: with hyperglycemia Diabetes mellitus terminal make up operator insulin use: with terminal make up operator use Qualified Code(s): E11.65 - Type 2 diabetes mellitus with hyperglycemia; Z79.4 - terminal operator (current) use of insulin (5) DELMI (obstructive sleep apnea) Priority: Secondary Status: Chronic Comments: Continue BiPAP at home (6) Morbid obesity with BMI of 45.0-49.9, adult Priority: Secondary Status: Chronic Comments: Encouraged lifestyle modification - Discharge Medications Prescriptions: Amiodarone [Cordarone] 200 mg PO BID #60 tablet Apixaban [Eliquis] 5 mg PO BID #60 tablet Furosemide [Lasix] 40 mg PO DAILY #30 tablet Lidocaine Patch [Lidoderm 5% patch] 1 each TP Q24H #10 adh..patch Metoprolol XL (24 HR) Succ [Toprol Xl] 100 mg PO BID #120 tab.er.24h Home Medications: Insulin ASPART [Novolog Flexpen] 20 unit SQ TID 04/19/15 [History] HYDROcodone/Acet 5/325 mg [[place] 5-325 mg] 1 tab PO Q8H PRN 05/24/15 [History] Gabapentin [Neurontin] 100 mg PO TID 07/02/16 [History] Insulin Glargine,Hum.rec.anlog [Lantus Solostar] 50 unit SQ BID 07/02/16 [ History] Paroxetine [Paxil] 20 mg PO DAILY 07/02/16 [History] Trazodone HCl 100 mg PO HS 07/02/16 [History] metFORMIN [Glucophage] 500 mg PO BIDWM 07/02/16 [History] Amiodarone [Cordarone] 200 mg PO BID #60 tablet 07/07/16 [Rx] Apixaban [Eliquis] 5 mg PO BID #60 tablet 07/07/16 [Rx] Furosemide [Lasix] 40 mg PO DAILY #30 tablet 07/07/16 [Rx] Lidocaine Patch [Lidoderm 5% patch] 1 each TP Q24H #10 adh..patch 07/07/16 [Rx] Metoprolol XL (24 HR) Succ [Toprol Xl] 100 mg PO BID #120 tab.er.24h 07/07/16 [ Rx] Allergies/Adverse Reactions: Allergies No Known Allergies Allergy (Verified 07/02/16 15:36) Procedures/tests Complete & Pending: Procedures Performed prior 72 hours Category Date Time Status Left Heart Cath [CL Cardiac Catheterization] [CL] Card Grinder Helper 07/05/16 12:00 Ordered Routine US retroperitoneal comp [US] Routine Exams 07/07/16 08:30 Completed Date of admission: 07/02/16 21:30 Primary care physician: Buzz Trotter DO Consults: 07/04/16 13:06 Consult to Nephrology [CONS] Routine Consulting Provider: Aki Lebron Reason for Consult: ALIX vs worsening CKD, reportedly has pending outpatient appt per referral from PCP, needs LHC during hospital stay Call Completed: Yes Discharging clinician: Maycol Banegas Anticipated date of discharge: 07/07/16 - Patient Status Disposition: Home, Self-Care Condition: Fair Functional capacity at discharge: independent ambulation Overall status at discharge: patient is progressing back to baseline - Discharge Instructions Follow Up With: Danielle Morocho CNP [Advanced Practice Nurse] - 07/13/16 3:15 pm - Diet and Activity Activity: resume usual activities as tolerated Diet: diabetic diet, low fat, low cholesterol, low salt diet Interval History: See below Hospital course: Mr. Nguyen is a 65 year old male with medical history of hypertension, diabetes, sleep apnea, who presented to [facility] on July 02 after he was found to be in A. fib with RVR during routine echocardiogram, he was admitted into the step-down unit following initiation of Cardizem drip in the emergency room. Workup on admission revealed a KI, A. fib with RVR and systolic congestive heart failure. Cardiology was consulted for evaluation and management of patient's cardiology problems including A. fib with RVR and CHF in the setting of a KI. Patient was euvolemic throughout admission and is a care has resolved. His heart rate has been between 80-200 on current regimen. Patient is seen at bedside this morning has no new complaints patient is clinically stable and hemodynamically stable for discharge Ensure early cardiology appointment. Follow-up with PCP Rest of details of diagnoses as in each diagnosis. - Time Spent with Patient Total time spent providing and/or coordinating discharge services: Greater than 30 minutes (40 minutes spent on chart review, patient encounter, medication reconciliation and prescriptions, documentation) - Constitutional Vitals: Temp Pulse Resp BP Pulse Ox 98.0 F 99 16 109/84 95 07/07/16 12:04 07/07/16 12:04 07/07/16 12:04 07/07/16 12:04 07/07/16 12:04 General appearance: Present: A&O X 3, morbidly obese, no acute distress, answers questions appropriately - Head Head exam: Present: atraumatic, normocephalic - Eye Eye exam: Present: PERRL, conjuntiva pink, sclera anicteric Pupils: Present: PERRL - Neck Neck exam general surgery: Present: supple, trachea midline. Absent: lymphadenopathy - Respiratory Respiratory exam: Present: CTAB. Absent: accessory muscle use, rales, rhonchi, wheezes - Cardiovascular Cardiovascular exam: Present: irregular rhythm, +S1, +S2. Absent: diastolic murmur, gallop, rubs, systolic murmur - GI/Abdominal GI/Abdominal exam: Present: normal bowel sounds, soft, no peritoneal signs. Absent: distended, tenderness - Extremities Exam Extremities exam: Present: warm, radial pulses palpable and symetrical. Absent : calf tenderness, cyanotic, pedal edema - Back Exam Additional comments: Right posterior back bruise, healing - Neurological Exam Neurological exam: Present: alert, CN II-XII intact, oriented X3, no focal deficits. Absent: pronater drift, facial droop, speech deficit - Skin Skin exam: Present: dry, intact
--- NOTE | 2016-07-07 13:10 | Nephrology Progress Note ---
Date of Encounter: 07/07/16 Time of Encounter: 12:00 - Assessment and Plan (1) ALIX (acute kidney injury) Status: Acute SCr reamins drastically improved at 1.11, GFR >60 UOP acceptable Continue to avoid nephrotoxins if possible US of kidney results noted and discussed with pt Will followup on outpatient with repeat labs (2) Acute systolic (congestive) heart failure Status: Acute Per cardiology (3) Atrial fibrillation with RVR Status: Acute Per cardiology Subjective Principal diagnosis: Afib RVR Interval history: Pt seen and examined with no new complaints. Eager to go home. Objective - Vital Signs Vital signs: Vital Signs Temp Pulse Resp BP Pulse Ox 07/07/16 12:04 98.0 F 99 16 109/84 95 07/07/16 11:18 96 07/07/16 08:00 92 07/07/16 07:13 92 16 114/99 96 07/07/16 04:39 98.0 F 106 19 109/91 95 07/07/16 04:00 96 07/07/16 00:42 98.5 F 102 20 105/71 96 07/07/16 00:30 104 07/06/16 23:37 14 93/73 95 07/06/16 20:31 97.6 F 106 20 93/73 96 07/06/16 20:30 105 07/06/16 16:22 98.0 F 101 20 117/63 97 07/06/16 15:27 106 Intake and Output 07/06/16 07/07/16 07/07/16 23:59 07:59 15:59 Intake Total 120 / 120 0 / 0 Output Total 275 / 275 Balance 120 / 120 -275 / -275 0 / 0 Intake: Oral 120 / 120 0 / 0 Output: Urine 275 / 275 Other: Meal Dinner Breakfast Percent of Meal Consumed 0% 0% Blood Glucose* 155 156 138 - General Appearance General appearance: Present: well-developed, well-nourished (NAD) EENT: Present: ATNC, mucous membranes moist Neck: Present: no JVD, supple Respiratory: Present: clear Cardiology: Present: edema (LE bilat), irregular rhythm, normal S1, normal S2 Gastrointestinal: Present: no tenderness, no guarding Integumentary: Present: no rash, warm and dry Neurologic: Present: no focal deficit Musculoskeletal: Present: no deformities Psychiatric: Present: mood/affect appropriate, cooperative - Lab 07/06/16 06:29 07/07/16 04:08 Most recent lab results Calcium 9.5 mg/dL (8.6-10.8) 07/07/16 04:08 Phosphorus 3.0 mg/dL (2.3-4.7) 07/06/16 04:21 Magnesium 2.1 mg/dL (1.6-2.6) 07/06/16 04:21 Urine Creatinine 72 mg/dL 07/05/16 19:30 Urine Total Protein 9 mg/dL (1-14) 07/05/16 19:30 Consult Discharge Plan - Plan Instructions: Heart Failure (DC), Atrial Fibrillation (DC) Referrals: Danielle Morocho CNP [Advanced Practice Nurse] - 07/13/16 3:15 pm Aki Lebron CNP [Advanced Practice Nurse] - (Online referral made for patient. Patient informed to expect phone call on number they provided in the next 1 to 2 business days. If not call number listed for cardiology and make appt in 1 to 2 weeks to follow up.) Prescriptions: Amiodarone [Cordarone] 200 mg PO BID #60 tablet Apixaban [Eliquis] 5 mg PO BID #60 tablet Furosemide [Lasix] 40 mg PO DAILY #30 tablet Lidocaine Patch [Lidoderm 5% patch] 1 each TP Q24H #10 adh..patch Metoprolol XL (24 HR) Succ [Toprol Xl] 100 mg PO BID #120 tab.er.24h
[2016-07-07] MEDS ORDERED: *HR* HYDROcodone/Acet 5/325 mg TABLET PO ONE (14:59)
[2016-07-07 15:02] VITALS: BP 101/76
--- NOTE | 2016-07-07 15:33 | Event Note ---
Date of Encounter: 07/07/16 Time of Encounter: 15:30 - Cardiology Event Note Current heart rate noted to be 80's-100's on tele atrial fibrillation. Discussed and reviewed with Dr. Archibald, cardiology will sign off, re-consult as needed, follow-up scheduled. All questions answered. Discussed with primary service. Possible DC today if remains rate controlled.
[2016-07-07] MEDS ORDERED: *HR* Amiodarone 200 MG TABLET PO SCH (21:00)
[2016-07-07] MEDS ORDERED: Metoprolol XL (24 HR) Succ 50 MG TAB.ER.24H PO SCH (21:00)
--- NOTE | 2016-07-08 09:58 | Invasive Diagnostic Lab ---
Name: David Nguyen Date of Study: 07/04/2016 Date: 1950 Ht: 183.0 cm /72.0 in Medical Record#: [id number] Age: 65 Wt: 158. kg / 348.33 lb Account/Order#: [id number] Gender: Male BSA: 2.7 Order #: [id number] Fluoro Dose: 421 mGy BMI: 47.18 Procedure Physician: Gary Merrill MD, FACC Referring MD: Buzz Trotter DO Referring MD: Procedures Performed: LEFT HEART CATH Indications: Abnormal Test - ECHO Impressions: Mild coronary artery disease. Recommendations: Optimal medical therapy of patient's disease. Aggressive risk factor modification. History/Risk Factors: CHF Afib DELMI Morbid obesity ALIX DM Procedure Access obtained in the right Radial artery by percutaneous puncture Complications: None Contrast: Isovue 37ml Closure Device: Mechanical Compression Hemodynamics: Pressures Site Systolic/ A Wave Diastolic/ V Wave End Diastolic/ Mean HR AO 59 40 48 AO 85 63 72 LV 117 18 35 AO 113 76 93 LV 122 18 28 Coronary Dominance: Co-dominant Lesion Findings/Interventions * Left Main Coronary Artery The LMCA is angiographically free of disease. * Left Anterior Descending There is a 20% stenosis in the Mid LAD. There is a 50% stenosis in the 1st Diagonal. * Circumflex There is a 50% stenosis in the Proximal Circumflex. * Right Coronary Artery The RCA is angiographically free of disease. The Right PDA is angiographically free of disease. Updated by Bethany Crockett, RT (R) on 07/05/2016 11:06:41 AM Gary Merrill MD, FACC electronically signed on 07/08/2016 9:52:02 AM with status of Final
[2016-07-08 15:22] LABS: Complement Component 3 136 mg/dL (88-201); Complement Component 4 33 mg/dL (10-40)
[2016-07-09 08:34] LABS: Alpha 2 Globulin (PEP) 0.97 g/dL (0.48-1.05); Beta Globulin (PEP) 0.79 g/dL (0.48-1.10)
[2016-07-09 12:11] LABS: IFE Reflexed NOT DONE
[2016-07-09 12:12] LABS: ANA IgG by ELISA NONE DETECTED (None Detected)
[2016-07-09 12:48] LABS: Urine Collection Duration RANDOM hr; Urine Collection Volume RANDOM mL
== END 2016-07-07 17:04 | disposition home or self-care (01) | DRG 192 ==
LOC: EMEROO 15:29 → 2ANU 15:29 → SUATTDRO 21:30 → 2NNU 07-05 12:13
PROVIDERS: ADMIT Registered Nurse; ATTEND Internal Medicine

== ENCOUNTER 2020-04-15 00:22 | Inpatient (IN) ==
[2020-04-15] MEDS ORDERED: methylPREDNISolone 125 MG/2 ML VIAL IVP ONE (00:30)
[2020-04-15] MEDS ORDERED: Nitroglycerin 0.4 MG TAB.SUBL SL STA (00:30)
[2020-04-15] MEDS ORDERED: Ipratropium/Albuterol Neb 3 ML IH ONE (00:30)
[2020-04-15 00:49] LABS: ABG Base Excess -2 mEq/L (-2 to 3); ABG HCO3 25 mEq/L (21-27); ABG Oxygen Saturation 100 % (95-98); ABG PCO2 48 mmHg (35-45); ABG PH 7.32 pH Units (7.32-7.45); ABG PO2 180 mmHg (85-104); ABG TCO2 26 mEq/L (20-26); Blood Gas Pressure Support 8 cm H2O
[2020-04-15] MEDS ORDERED: Piperacillin/Tazobactam 3.375 GM in Water for inj. (sterile) 20 ML IVP ONE (00:52)
[2020-04-15 01:00] LABS: Basophils # 0.1 K/mcL (0.0-0.2); Basophils % 0.8 %; Eosinophils # 0.3 K/mcL (0.0-0.6); Eosinophils % 1.7 %; Hematocrit 41.9 % (37.5-50.1); Hemoglobin 12.9 g/dL (12.9-16.9); Immature Granulocytes % 1.4 % (0-4); Lymphocytes # 4.1 K/mcL (0.6-4.6); Lymphocytes % 22.6 %; Mean Corpuscular HGB Conc 30.8 g/dL (31.6-35.5); Mean Corpuscular Hemoglobin 28.5 pg (28.0-33.3); Mean Corpuscular Volume 92.7 fL (83.0-100.0); Mean Platelet Volume 10.3 fL (9.4-12.4); Monocytes # 1.1 K/mcL (0.0-1.3); Monocytes % 6.2 %; Neutrophils # 12.1 K/mcL (1.6-8.9); Nucleated Red Blood Cells 0.2 /100 WBC (0); Platelet Count 372 K/mcL (140-400); Red Blood Count 4.52 M/mcL (4.19-5.50); Red Cell Distribution Width 14.7 % (11.5-14.5); Segmented Neutrophils % 67.3 %
[2020-04-15] MEDS ORDERED: *HR* FentaNYL (PF) 100 MCG/2 ML VIAL IVP ONE (01:26)
[2020-04-15 01:29] LABS: BUN/Creatinine Ratio 14 (6-26); Blood Urea Nitrogen 19 mg/dL (8-23); Calcium 8.8 mg/dL (8.6-10.3); Carbon Dioxide 22 mEq/L (23-29); Chloride 98 mEq/L (98-107); Glucose 546 mg/dL (70-105); Osmolality,Calculated 305 (280-300); Potassium 4.7 mEq/L (3.5-5.1); Sodium 134 mEq/L (136-145); Troponin I 0.03 ng/mL (< 0.04); eGFR For African Americans > 60 (> 60); eGFR For Non-African Americans 53 (> 60)
[2020-04-15] MEDS ORDERED: Insulin Human Regular 20 UNIT in 0.9 % Sodium Chloride 10 ML IV ONE (02:06)
[2020-04-15] MEDS ORDERED: *HR* Metoprolol 5 MG/5 ML VIAL IVP ONE ×2 (02:06→06:36)
[2020-04-15] MEDS ORDERED: Furosemide 40 MG/4 ML VIAL IVP ONE (03:02)
[2020-04-15 04:15] LABS: Adenovirus Not Detected (Not Detect); Bordetella Pertussis Not Detected (Not Detect); Chlamydophila pneumoniae Not Detected (Not Detect); Coronavirus 229E Not Detected (Not Detect); Coronavirus HKU1 Not Detected (Not Detect); Coronavirus NL63 Not Detected (Not Detect); Coronavirus OC43 Not Detected (Not Detect); Human Metapneumovirus Not Detected (Not Detect); Human Rhinovirus/Enterovirus Not Detected (Not Detect); Influenza A Subtype 2009 H1 Not Detected (Not Detect); Influenza B Not Detected (Not Detect); Mycoplasma pneumoniae Not Detected (Not Detect); Parainfluenza Virus 1 Not Detected (Not Detect); Parainfluenza Virus 2 Not Detected (Not Detect); Parainfluenza Virus 3 Not Detected (Not Detect); Parainfluenza Virus 4 Not Detected (Not Detect); Respiratory Syncytial Virus Not Detected (Not Detect); SARS-CoV-2 Not Detected (Not Detect)
[2020-04-15 04:24] LABS: Alanine Aminotransferase 29 Units/L (7-52); Albumin 3.7 g/dL (3.5-5.7); Alkaline Phosphatase 80 Units/L (34-104); Aspartate Amino Transferase 24 Units/L (13-39); Bilirubin,Direct 0.5 mg/dL (0.0-0.2); Bilirubin,Indirect 0.5 mg/dL (0.0-1.0); Globulin 3.7 g/dL (2.4-3.5); Total Protein 7.4 g/dL (6.4-8.9)
[2020-04-15] MEDS ORDERED: Naloxone 0.4 MG/ML INJ IVP PRN (04:54)
[2020-04-15] MEDS ORDERED: Dextrose Gel 15 GM/37.5 ML TUBE PO PRN ×2 (04:54)
[2020-04-15] MEDS ORDERED: D5% in Water 1,000 ML IVC PRN (04:54)
[2020-04-15] MEDS ORDERED: *HR* Dextrose 50 % in Water (Vial) 50 ML VIAL IVP PRN ×2 (04:54→09:13)
[2020-04-15] MEDS ORDERED: Acetaminophen 325 MG TABLET PO PRN (05:44)
[2020-04-15] MEDS: Insulin LISPRO 300 UNITS/3 ML VIAL SUBQ SCH ×4 (05:50→21:01)
[2020-04-15] MEDS: Insulin DETEMIR 100 UNIT/ML X5UNITS SUBQ SCH ×2 (05:50→21:00)
[2020-04-15] MEDS ORDERED: *HR* Heparin 5,000 UNIT/ML VIAL SQ SCH (06:00)
[2020-04-15 07:00] LABS: Estimated Average Glucose 189 mg/dl; Hemoglobin A1C 8.2 %
[2020-04-15] MEDS ORDERED: Insulin Human Regular 10 UNIT in 0.9 % Sodium Chloride 10 ML IV ONE (07:32)
[2020-04-15] MEDS: Cefepime HCl 2,000 MG in Water for inj. (sterile) 20 ML IVP SCH ×2 (07:49→16:32)
[2020-04-15] MEDS: Aspirin 81 MG TAB.CHEW PO SCH (07:49)
[2020-04-15] MEDS: Nystatin POWDER 30 GM BOTTLE TP SCH ×3 (07:49→21:00)
[2020-04-15] MEDS ORDERED: Insulin Human Regular 100 UNIT in 0.9 % Sodium Chloride 100 ML IVC SCH (09:15)
[2020-04-15] MEDS ORDERED: *HR* Metoprolol 5 MG/5 ML VIAL IVP PRN (10:06)
[2020-04-15] MEDS ORDERED: *HR* Amiodarone 200 MG TABLET PO SCH (10:15)
[2020-04-15] MEDS ORDERED: Metoprolol XL (24 HR) Succ 50 MG TAB.ER.24H PO SCH (10:15)
[2020-04-15] MEDS: Apixaban 5 MG TABLET PO SCH ×2 (10:32→20:59)
[2020-04-15 10:57] LABS: Calcium 9.1 mg/dL (8.6-10.3); Potassium 5.3 mEq/L (3.5-5.1)
[2020-04-15] MEDS ORDERED: Amiodarone Premix 150 MG/100 ML BAG IVPB ONE (12:02)
[2020-04-15] MEDS ORDERED: Amiodarone Premix 360 MG/200 ML BAG IVC ONE (12:02)
[2020-04-15] MEDS: *HR* OxyCODONE Immed Rel 5 MG TABLET PO PRN (12:45)
[2020-04-15 15:39] LABS: BUN/Creatinine Ratio 19 (6-26); Blood Urea Nitrogen 26 mg/dL (8-23); Calcium 8.9 mg/dL (8.6-10.3); Carbon Dioxide 23 mEq/L (23-29); Chloride 101 mEq/L (98-107); Glucose 306 mg/dL (70-105); Osmolality,Calculated 292 (280-300); Sodium 133 mEq/L (136-145); eGFR For African Americans > 60 (> 60); eGFR For Non-African Americans 52 (> 60)
[2020-04-15 15:46] LABS: Bilirubin,Urine Negative (Negative); Blood,Urine Negative (Negative); Clarity,Urine Clear (Clear); Color,Urine Light-Yellow (Yellow); Glucose,Urine (UA) >=1000 mg/dL (Normal); Hyaline Casts,Urine Few per lpf (None Seen); Ketones,Urine Trace mg/dL (Negative); Leukocyte Esterase,Urine Negative (Negative); Mucus,Urine Few per lpf (None-Few); Nitrite,Urine Negative (Negative); Protein,Urine Trace mg/dL (Neg-Trace); RBC,Urine 0-3 per hpf (0-3); Specific Gravity,Urine 1.026 (1.010-1.025); Urobilinogen,Urine Normal (Normal); WBC,Urine 0-3 per hpf (0-3)
[2020-04-15] MEDS ORDERED: Amiodarone Premix 360 MG/200 ML BAG IVC SCH (18:03)
[2020-04-15] MEDS: Metoprolol XL (24 HR) Succ 50 MG TAB.ER.24H PO SCH (20:59)
[2020-04-15] MEDS: Gabapentin 300 MG CAPSULE PO SCH (20:59)
[2020-04-16] MEDS: Melatonin 3 MG TABLET PO PRN ×2 (00:40→21:56)
[2020-04-16] MEDS: Cefepime HCl 2,000 MG in Water for inj. (sterile) 20 ML IVP SCH ×3 (00:40→16:35)
[2020-04-16 01:56] LABS: Basophils % 0.2 %; Eosinophils % 0.1 %; Hematocrit 35.7 % (37.5-50.1); Hemoglobin 11.4 g/dL (12.9-16.9); Immature Granulocytes % 0.7 % (0-4); Lymphocytes # 1.4 K/mcL (0.6-4.6); Lymphocytes % 8.2 %; Mean Corpuscular HGB Conc 31.9 g/dL (31.6-35.5); Mean Corpuscular Hemoglobin 28.5 pg (28.0-33.3); Mean Corpuscular Volume 89.3 fL (83.0-100.0); Mean Platelet Volume 9.9 fL (9.4-12.4); Monocytes % 5.7 %; Neutrophils # 14.4 K/mcL (1.6-8.9); Platelet Count 257 K/mcL (140-400); Red Cell Distribution Width 14.9 % (11.5-14.5); Segmented Neutrophils % 85.1 %; White Blood Count 16.9 K/mcL (4.3-11.1)
[2020-04-16 02:08] LABS: INR 1.7; Prothrombin Time 19.1 Seconds (9.4-12.1)
[2020-04-16 02:20] LABS: BUN/Creatinine Ratio 22 (6-26); Blood Urea Nitrogen 28 mg/dL (8-23); Calcium 9.1 mg/dL (8.6-10.3); Carbon Dioxide 24 mEq/L (23-29); Chloride 102 mEq/L (98-107); Glucose 285 mg/dL (70-105); Osmolality,Calculated 296 (280-300); Potassium 4.7 mEq/L (3.5-5.1); Sodium 135 mEq/L (136-145); Troponin I 0.11 ng/mL (< 0.04); eGFR For African Americans > 60 (> 60); eGFR For Non-African Americans 55 (> 60)
[2020-04-16] MEDS: Insulin LISPRO 300 UNITS/3 ML VIAL SUBQ SCH ×6 (07:21→20:38)
[2020-04-16] MEDS: Aspirin 81 MG TAB.CHEW PO SCH (08:32)
[2020-04-16] MEDS: Gabapentin 300 MG CAPSULE PO SCH ×2 (08:32→21:33)
[2020-04-16] MEDS: lisinopriL 20 MG TABLET PO SCH (08:32)
[2020-04-16] MEDS: Metoprolol XL (24 HR) Succ 50 MG TAB.ER.24H PO SCH ×2 (08:32→21:33)
[2020-04-16] MEDS: Nystatin POWDER 30 GM BOTTLE TP SCH ×3 (08:33→21:56)
[2020-04-16] MEDS: Apixaban 5 MG TABLET PO SCH ×2 (10:31→21:33)
[2020-04-16] MEDS: Furosemide 40 MG/4 ML VIAL IVP SCH (10:32)
[2020-04-16 11:56] LABS: Magnesium 1.7 mg/dL (1.6-2.6); Phosphorous 3.4 mg/dL (2.7-4.5)
[2020-04-16] MEDS ORDERED: Metoprolol XL (24 HR) Succ 50 MG TAB.ER.24H PO ONE (12:24)
[2020-04-16] MEDS ORDERED: *HR* Digoxin 0.5 MG/2 ML AMPUL IVP ONE (14:03)
[2020-04-16] MEDS: Insulin DETEMIR 100 UNIT/ML X5UNITS SUBQ SCH (21:34)
[2020-04-16] MEDS: *HR* Digoxin 0.5 MG/2 ML AMPUL IVP SCH (21:54)
[2020-04-17] MEDS: Cefepime HCl 2,000 MG in Water for inj. (sterile) 20 ML IVP SCH ×4 (00:15→23:36)
[2020-04-17] MEDS: *HR* Digoxin 0.5 MG/2 ML AMPUL IVP SCH (03:43)
[2020-04-17 05:23] LABS: Basophils # 0.1 K/mcL (0.0-0.2); Basophils % 0.6 %; Eosinophils # 0.1 K/mcL (0.0-0.6); Eosinophils % 1.4 %; Hemoglobin 11.7 g/dL (12.9-16.9); Immature Granulocytes % 0.6 % (0-4); Lymphocytes # 1.6 K/mcL (0.6-4.6); Lymphocytes % 16.4 %; Mean Corpuscular HGB Conc 31.6 g/dL (31.6-35.5); Mean Corpuscular Hemoglobin 28.5 pg (28.0-33.3); Mean Corpuscular Volume 90.2 fL (83.0-100.0); Monocytes # 0.8 K/mcL (0.0-1.3); Monocytes % 7.7 %; Neutrophils # 7.2 K/mcL (1.6-8.9); Platelet Count 268 K/mcL (140-400); Segmented Neutrophils % 73.3 %; White Blood Count 9.8 K/mcL (4.3-11.1)
[2020-04-17 05:41] LABS: BUN/Creatinine Ratio 22 (6-26); Blood Urea Nitrogen 26 mg/dL (8-23); Calcium 9.2 mg/dL (8.6-10.3); Carbon Dioxide 31 mEq/L (23-29); Chloride 100 mEq/L (98-107); Glucose 131 mg/dL (70-105); Osmolality,Calculated 289 (280-300); Potassium 4.6 mEq/L (3.5-5.1); Sodium 136 mEq/L (136-145); eGFR For African Americans > 60 (> 60); eGFR For Non-African Americans > 60 (> 60)
[2020-04-17] MEDS: Furosemide 40 MG/4 ML VIAL IVP SCH (07:36)
[2020-04-17] MEDS: Metoprolol XL (24 HR) Succ 50 MG TAB.ER.24H PO SCH ×2 (07:37→22:41)
[2020-04-17] MEDS: lisinopriL 20 MG TABLET PO SCH (07:37)
[2020-04-17] MEDS: Gabapentin 300 MG CAPSULE PO SCH ×2 (07:37→21:04)
[2020-04-17] MEDS: Aspirin 81 MG TAB.CHEW PO SCH (07:37)
[2020-04-17] MEDS: Apixaban 5 MG TABLET PO SCH ×2 (07:37→21:03)
[2020-04-17] MEDS: Insulin LISPRO 300 UNITS/3 ML VIAL SUBQ SCH ×7 (08:01→21:04)
[2020-04-17] MEDS: Nystatin POWDER 30 GM BOTTLE TP SCH ×3 (09:12→21:05)
[2020-04-17] MEDS ORDERED: Lidocaine -MPF 2% 2 ML VIAL ONE (10:52)
[2020-04-17] MEDS ORDERED: *HR* Propofol 200 MG/20 ML VIAL IVP ONE (10:52)
[2020-04-17] MEDS ORDERED: EPINEPHrine 1 MG/ML VIAL ONE (10:56)
[2020-04-17] MEDS ORDERED: Amiodarone Premix 360 MG/200 ML BAG IVC ONE (11:51)
[2020-04-17] MEDS ORDERED: Amiodarone Premix 150 MG/100 ML BAG IVPB ONE (11:51)
[2020-04-17] MEDS ORDERED: *HR* Amiodarone 200 MG TABLET PO SCH (11:54)
[2020-04-17] MEDS: *HR* Amiodarone 200 MG TABLET PO SCH (13:57)
[2020-04-17] MEDS ORDERED: Furosemide 40 MG/4 ML VIAL IVP ONE (17:00)
[2020-04-17] MEDS ORDERED: Amiodarone Premix 360 MG/200 ML BAG IVC SCH (17:52)
[2020-04-17] MEDS: Insulin DETEMIR 100 UNIT/ML X5UNITS SUBQ SCH (21:04)
[2020-04-17] MEDS: *HR* OxyCODONE Immed Rel 5 MG TABLET PO PRN (23:44)
[2020-04-17] MEDS: Melatonin 3 MG TABLET PO PRN (23:44)
[2020-04-18 02:08] LABS: Basophils # 0.1 K/mcL (0.0-0.2); Basophils % 0.6 %; Eosinophils # 0.2 K/mcL (0.0-0.6); Eosinophils % 2.6 %; Hematocrit 33.8 % (37.5-50.1); Hemoglobin 10.8 g/dL (12.9-16.9); Immature Granulocytes % 0.5 % (0-4); Lymphocytes # 1.5 K/mcL (0.6-4.6); Lymphocytes % 19.1 %; Mean Corpuscular Hemoglobin 28.5 pg (28.0-33.3); Mean Corpuscular Volume 89.2 fL (83.0-100.0); Mean Platelet Volume 9.5 fL (9.4-12.4); Monocytes # 0.6 K/mcL (0.0-1.3); Neutrophils # 5.5 K/mcL (1.6-8.9); Platelet Count 247 K/mcL (140-400); Red Blood Count 3.79 M/mcL (4.19-5.50); Red Cell Distribution Width 14.8 % (11.5-14.5); Segmented Neutrophils % 69.2 %
[2020-04-18 02:51] LABS: BUN/Creatinine Ratio 28 (6-26); Blood Urea Nitrogen 35 mg/dL (8-23); Calcium 8.8 mg/dL (8.6-10.3); Carbon Dioxide 28 mEq/L (23-29); Chloride 101 mEq/L (98-107); Glucose 151 mg/dL (70-105); Osmolality,Calculated 293 (280-300); Potassium 3.9 mEq/L (3.5-5.1); Sodium 136 mEq/L (136-145); eGFR For African Americans > 60 (> 60); eGFR For Non-African Americans 58 (> 60)
[2020-04-18 02:53] LABS: Magnesium 1.8 mg/dL (1.6-2.6)
[2020-04-18 03:06] LABS: Thyroid Stimulating Hormone 4.591 mcIU/mL (0.340-5.600)
[2020-04-18] MEDS: Insulin LISPRO 300 UNITS/3 ML VIAL SUBQ SCH ×7 (07:26→19:49)
[2020-04-18] MEDS: Gabapentin 300 MG CAPSULE PO SCH ×2 (07:30→19:47)
[2020-04-18] MEDS: Cefepime HCl 2,000 MG in Water for inj. (sterile) 20 ML IVP SCH (07:30)
[2020-04-18] MEDS: lisinopriL 20 MG TABLET PO SCH (07:31)
[2020-04-18] MEDS: Furosemide 40 MG TABLET PO SCH (07:31)
[2020-04-18] MEDS: Apixaban 5 MG TABLET PO SCH ×2 (07:31→19:47)
[2020-04-18] MEDS: Aspirin 81 MG TAB.CHEW PO SCH (07:32)
[2020-04-18] MEDS: Nystatin POWDER 30 GM BOTTLE TP SCH ×3 (07:40→19:54)
[2020-04-18] MEDS: Metoprolol XL (24 HR) Succ 50 MG TAB.ER.24H PO SCH (07:48)
[2020-04-18] MEDS: *HR* Amiodarone 200 MG TABLET PO SCH (07:49)
[2020-04-18 13:27] LABS: VBG HCO3 28 mEq/L (21-27); VBG PCO2 43 mmHg (41-51); VBG PH 7.42 pH Units (7.32-7.42); VBG PO2 185 mmHg (25-50)
[2020-04-18] MEDS: Lactobacillus 1 EACH CAP.SPRINK PO SCH (19:47)
[2020-04-18] MEDS: Insulin DETEMIR 100 UNIT/ML X5UNITS SUBQ SCH (19:50)
[2020-04-19 06:00] LABS: Basophils % 0.5 %; Eosinophils # 0.2 K/mcL (0.0-0.6); Eosinophils % 2.1 %; Hematocrit 36.4 % (37.5-50.1); Hemoglobin 11.8 g/dL (12.9-16.9); Immature Granulocytes % 0.7 % (0-4); Lymphocytes # 0.9 K/mcL (0.6-4.6); Lymphocytes % 10.5 %; Mean Corpuscular HGB Conc 32.4 g/dL (31.6-35.5); Mean Corpuscular Hemoglobin 29.4 pg (28.0-33.3); Mean Corpuscular Volume 90.5 fL (83.0-100.0); Mean Platelet Volume 9.7 fL (9.4-12.4); Monocytes # 0.8 K/mcL (0.0-1.3); Monocytes % 9.8 %; Neutrophils # 6.4 K/mcL (1.6-8.9); Platelet Count 246 K/mcL (140-400); Red Blood Count 4.02 M/mcL (4.19-5.50); Red Cell Distribution Width 14.6 % (11.5-14.5); Segmented Neutrophils % 76.4 %; White Blood Count 8.4 K/mcL (4.3-11.1)
[2020-04-19 06:24] LABS: BUN/Creatinine Ratio 24 (6-26); Blood Urea Nitrogen 31 mg/dL (8-23); Calcium 9.1 mg/dL (8.6-10.3); Carbon Dioxide 28 mEq/L (23-29); Chloride 101 mEq/L (98-107); Glucose 260 mg/dL (70-105); Magnesium 2.2 mg/dL (1.6-2.6); Osmolality,Calculated 298 (280-300); Sodium 136 mEq/L (136-145); eGFR For African Americans > 60 (> 60); eGFR For Non-African Americans 56 (> 60)
[2020-04-19] MEDS: Insulin LISPRO 300 UNITS/3 ML VIAL SUBQ SCH ×7 (07:19→21:50)
[2020-04-19] MEDS: Nystatin POWDER 30 GM BOTTLE TP SCH ×2 (07:23→16:56)
[2020-04-19] MEDS: Furosemide 40 MG TABLET PO SCH (08:05)
[2020-04-19] MEDS: lisinopriL 20 MG TABLET PO SCH (08:05)
[2020-04-19] MEDS: Aspirin 81 MG TAB.CHEW PO SCH (08:05)
[2020-04-19] MEDS: Lactobacillus 1 EACH CAP.SPRINK PO SCH ×2 (08:05→21:49)
[2020-04-19] MEDS: *HR* Amiodarone 200 MG TABLET PO SCH (08:05)
[2020-04-19] MEDS: Gabapentin 300 MG CAPSULE PO SCH ×2 (08:05→21:50)
[2020-04-19] MEDS: Apixaban 5 MG TABLET PO SCH ×2 (08:05→21:50)
[2020-04-19] MEDS ORDERED: NIFEdipine XL (24 HR) 60 MG TAB.ER.24 PO SCH (11:30)
[2020-04-19] MEDS ORDERED: Furosemide 40 MG/4 ML VIAL IVP ONE (14:42)
[2020-04-19] MEDS: hydrALAZINE 25 MG TABLET PO SCH (17:51)
[2020-04-19] MEDS: Insulin DETEMIR 100 UNIT/ML X5UNITS SUBQ SCH (21:49)
[2020-04-20] MEDS: hydrALAZINE 25 MG TABLET PO SCH (00:57)
[2020-04-20] MEDS: Nystatin POWDER 30 GM BOTTLE TP SCH ×2 (00:57→09:01)
[2020-04-20 02:36] LABS: Basophils % 0.4 %; Eosinophils # 0.2 K/mcL (0.0-0.6); Hematocrit 36.3 % (37.5-50.1); Hemoglobin 11.7 g/dL (12.9-16.9); Immature Granulocytes % 0.6 % (0-4); Lymphocytes # 1.1 K/mcL (0.6-4.6); Lymphocytes % 11.3 %; Mean Corpuscular HGB Conc 32.2 g/dL (31.6-35.5); Mean Corpuscular Hemoglobin 28.6 pg (28.0-33.3); Mean Corpuscular Volume 88.8 fL (83.0-100.0); Mean Platelet Volume 9.6 fL (9.4-12.4); Monocytes # 0.7 K/mcL (0.0-1.3); Monocytes % 7.1 %; Neutrophils # 7.6 K/mcL (1.6-8.9); Platelet Count 253 K/mcL (140-400); Red Blood Count 4.09 M/mcL (4.19-5.50); Red Cell Distribution Width 14.7 % (11.5-14.5); Segmented Neutrophils % 78.6 %; White Blood Count 9.7 K/mcL (4.3-11.1)
[2020-04-20 02:52] LABS: BUN/Creatinine Ratio 20 (6-26); Blood Urea Nitrogen 26 mg/dL (8-23); Calcium 9.1 mg/dL (8.6-10.3); Carbon Dioxide 30 mEq/L (23-29); Chloride 101 mEq/L (98-107); Glucose 187 mg/dL (70-105); Magnesium 2.1 mg/dL (1.6-2.6); Osmolality,Calculated 296 (280-300); Potassium 3.9 mEq/L (3.5-5.1); Sodium 138 mEq/L (136-145); eGFR For African Americans > 60 (> 60); eGFR For Non-African Americans 56 (> 60)
[2020-04-20] MEDS ORDERED: hydrALAZINE 25 MG TABLET PO SCH (08:00)
[2020-04-20] MEDS: *HR* Amiodarone 200 MG TABLET PO SCH (08:49)
[2020-04-20] MEDS: Furosemide 40 MG TABLET PO SCH (08:49)
[2020-04-20] MEDS: Gabapentin 300 MG CAPSULE PO SCH (08:49)
[2020-04-20] MEDS: Lactobacillus 1 EACH CAP.SPRINK PO SCH (08:50)
[2020-04-20] MEDS: Aspirin 81 MG TAB.CHEW PO SCH (08:50)
[2020-04-20] MEDS: Apixaban 5 MG TABLET PO SCH (08:50)
[2020-04-20] MEDS: Insulin LISPRO 300 UNITS/3 ML VIAL SUBQ SCH ×4 (08:50→12:41)
[2020-04-20] MEDS ORDERED: lisinopriL 20 MG TABLET PO SCH (09:00)
[2020-04-20] MEDS ORDERED: NIFEdipine XL (24 HR) 30 MG TAB.ER.24 PO SCH (09:00)
[2020-04-20] MEDS ORDERED: Isosorbide MONOnitrate (24 HR) 30 MG TAB.ER.24H PO SCH ×2 (09:00)
[2020-04-20 12:45] VITALS: BP 157/66
== END 2020-04-20 15:05 | disposition home health service (06) | DRG 871 ==
LOC: EMEROOARM 00:22 → 2NNU 00:22 → SUATTDRO 03:24 → 2NNU 04:30 → SUATTDRO 04-16 11:19
PROVIDERS: ADMIT Internal Medicine; ATTEND Pharmacist

== ENCOUNTER 2021-04-09 15:25 | Observation (INO) ==
[2021-04-09 16:28] LABS: Basophils % 0.6 %; Eosinophils # 0.1 K/mcL (0.0-0.6); Eosinophils % 1.5 %; Hematocrit 37.3 % (37.5-50.1); Hemoglobin 11.7 g/dL (12.9-16.9); Immature Granulocytes % 0.6 % (0-4); Lymphocytes # 1.1 K/mcL (0.6-4.6); Lymphocytes % 16.5 %; Mean Corpuscular HGB Conc 31.4 g/dL (31.6-35.5); Mean Corpuscular Hemoglobin 28.8 pg (28.0-33.3); Mean Corpuscular Volume 91.9 fL (83.0-100.0); Monocytes # 0.6 K/mcL (0.0-1.3); Monocytes % 9.2 %; Neutrophils # 4.9 K/mcL (1.6-8.9); Platelet Count 200 K/mcL (140-400); Red Blood Count 4.06 M/mcL (4.19-5.50); Red Cell Distribution Width 15.2 % (11.5-14.5); Segmented Neutrophils % 71.6 %; White Blood Count 6.9 K/mcL (4.3-11.1)
[2021-04-09 16:41] LABS: BUN/Creatinine Ratio 15 (6-26); Blood Urea Nitrogen 18 mg/dL (8-23); Calcium 8.8 mg/dL (8.6-10.3); Carbon Dioxide 25 mEq/L (23-29); Chloride 102 mEq/L (98-107); Glucose 125 mg/dL (70-105); Osmolality,Calculated 283 (280-300); Potassium 4.3 mEq/L (3.5-5.1); Sodium 135 mEq/L (136-145); eGFR For African Americans > 60 (> 60); eGFR For Non-African Americans 59 (> 60)
[2021-04-09 16:42] LABS: Troponin I < 0.03 ng/mL (< 0.04)
[2021-04-09 16:55] LABS: Thyroid Stimulating Hormone 1.716 mcIU/mL (0.340-5.600)
[2021-04-09] MEDS ORDERED: DilTIAZem 50 MG/50 ML IV.SOLN IVC SCH (19:00)
[2021-04-09] MEDS ORDERED: Ondansetron ODT 4 MG TAB.RAPDIS SL PRN (19:35)
[2021-04-09] MEDS ORDERED: Melatonin 3 MG TABLET PO PRN (19:35)
[2021-04-09] MEDS ORDERED: Naloxone 0.4 MG/ML INJ IVP PRN (19:35)
[2021-04-09] MEDS ORDERED: hydrALAZINE 25 MG TABLET PO SCH (21:00)
[2021-04-09] MEDS ORDERED: Metoprolol XL (24 HR) Succ 25 MG TAB.ER.24H PO SCH (21:15)
[2021-04-09] MEDS: Apixaban 5 MG TABLET PO SCH (22:27)
[2021-04-09] MEDS: Nystatin POWDER 30 GM BOTTLE TP SCH (22:29)
[2021-04-09] MEDS ORDERED: D5% in Water 1,000 ML IVC PRN (22:43)
[2021-04-09] MEDS ORDERED: Dextrose Gel 15 GM/37.5 ML TUBE PO PRN ×2 (22:43)
[2021-04-09] MEDS ORDERED: *HR* Dextrose 50 % in Water (Syg) 50 ML SYRINGE IVP PRN (22:43)
[2021-04-10 02:49] LABS: Basophils # 0.1 K/mcL (0.0-0.2); Basophils % 0.7 %; Eosinophils # 0.2 K/mcL (0.0-0.6); Eosinophils % 1.7 %; Hematocrit 36.7 % (37.5-50.1); Hemoglobin 11.8 g/dL (12.9-16.9); Immature Granulocytes % 0.6 % (0-4); Lymphocytes # 1.4 K/mcL (0.6-4.6); Lymphocytes % 16.7 %; Mean Corpuscular HGB Conc 32.2 g/dL (31.6-35.5); Mean Corpuscular Hemoglobin 29.2 pg (28.0-33.3); Mean Corpuscular Volume 90.8 fL (83.0-100.0); Mean Platelet Volume 10.5 fL (9.4-12.4); Monocytes # 0.7 K/mcL (0.0-1.3); Monocytes % 7.9 %; Neutrophils # 6.2 K/mcL (1.6-8.9); Platelet Count 207 K/mcL (140-400); Red Blood Count 4.04 M/mcL (4.19-5.50); Red Cell Distribution Width 15.3 % (11.5-14.5); Segmented Neutrophils % 72.4 %; White Blood Count 8.6 K/mcL (4.3-11.1)
[2021-04-10 02:55] LABS: INR 1.5; Prothrombin Time 16.7 Seconds (9.4-12.1)
[2021-04-10 03:15] LABS: BUN/Creatinine Ratio 18 (6-26); Blood Urea Nitrogen 21 mg/dL (8-23); Carbon Dioxide 24 mEq/L (23-29); Chloride 99 mEq/L (98-107); Glucose 254 mg/dL (70-105); Magnesium 1.8 mg/dL (1.6-2.6); Osmolality,Calculated 290 (280-300); Phosphorous 2.8 mg/dL (2.7-4.5); Potassium 4.2 mEq/L (3.5-5.1); Sodium 134 mEq/L (136-145); eGFR For African Americans > 60 (> 60); eGFR For Non-African Americans > 60 (> 60)
[2021-04-10 03:21] LABS: % Iron Saturation 14 % (20-55); Iron 46 mcg/dL (65-175); Transferrin 230 mg/dL (203-362)
[2021-04-10 03:34] LABS: Ferritin 115 ng/mL (20-250)
[2021-04-10 04:09] LABS: Folate > 22.3 ng/mL (3.0-16.0); Vitamin B12 241 pg/mL (250-1100)
[2021-04-10] MEDS ORDERED: Cyanocobalamin (B-12) 1,000 MCG/ML VIAL SQ ONE (08:04)
[2021-04-10] MEDS: Isosorbide MONOnitrate (24 HR) 30 MG TAB.ER.24H PO SCH (08:54)
[2021-04-10] MEDS: lisinopriL 20 MG TABLET PO SCH (08:54)
[2021-04-10] MEDS: Apixaban 5 MG TABLET PO SCH ×2 (08:55→20:49)
[2021-04-10] MEDS: Bumetanide 1 MG TABLET PO SCH ×3 (08:55→20:49)
[2021-04-10] MEDS: *HR* Amiodarone 200 MG TABLET PO SCH (08:55)
[2021-04-10] MEDS: Insulin LISPRO 300 UNITS/3 ML VIAL SUBQ SCH ×3 (08:56→17:15)
[2021-04-10] MEDS ORDERED: Bumetanide 1 MG TABLET PO SCH (09:00)
[2021-04-10] MEDS ORDERED: Metoprolol XL (24 HR) Succ 25 MG TAB.ER.24H PO SCH ×2 (09:00)
[2021-04-10] MEDS: Nystatin POWDER 30 GM BOTTLE TP SCH ×3 (09:17→20:52)
[2021-04-10] MEDS ORDERED: Perflutren Lipid Microsphere 1.3 ML in 0.9 % Sodium Chloride 8.7 ML IVP PRN (10:20)
[2021-04-10 14:58] LABS: Estimated Average Glucose 143 mg/dl; Hemoglobin A1C 6.6 %
[2021-04-10] MEDS ORDERED: Metoprolol XL (24 HR) Succ 25 MG TAB.ER.24H PO ONE (15:28)
[2021-04-10] MEDS: Acetaminophen 325 MG TABLET PO PRN ×2 (15:54→21:44)
[2021-04-10] MEDS: Metoprolol XL (24 HR) Succ 25 MG TAB.ER.24H PO SCH (20:50)
[2021-04-10] MEDS ORDERED: Insulin LISPRO 300 UNITS/3 ML VIAL SUBQ SCH ×2 (21:00)
[2021-04-11 02:43] LABS: Basophils # 0.1 K/mcL (0.0-0.2); Eosinophils # 0.3 K/mcL (0.0-0.6); Eosinophils % 4.2 %; Hematocrit 37.8 % (37.5-50.1); Hemoglobin 11.8 g/dL (12.9-16.9); Immature Granulocytes % 0.6 % (0-4); Lymphocytes # 1.7 K/mcL (0.6-4.6); Lymphocytes % 27.8 %; Mean Corpuscular HGB Conc 31.2 g/dL (31.6-35.5); Mean Corpuscular Hemoglobin 28.2 pg (28.0-33.3); Mean Corpuscular Volume 90.2 fL (83.0-100.0); Mean Platelet Volume 10.3 fL (9.4-12.4); Monocytes # 0.6 K/mcL (0.0-1.3); Monocytes % 10.3 %; Neutrophils # 3.5 K/mcL (1.6-8.9); Platelet Count 219 K/mcL (140-400); Red Blood Count 4.19 M/mcL (4.19-5.50); Red Cell Distribution Width 15.4 % (11.5-14.5); Segmented Neutrophils % 56.1 %; White Blood Count 6.2 K/mcL (4.3-11.1)
[2021-04-11 02:54] LABS: BUN/Creatinine Ratio 21 (6-26); Blood Urea Nitrogen 25 mg/dL (8-23); Calcium 9.1 mg/dL (8.6-10.3); Carbon Dioxide 25 mEq/L (23-29); Chloride 102 mEq/L (98-107); Glucose 152 mg/dL (70-105); Osmolality,Calculated 291 (280-300); Potassium 3.9 mEq/L (3.5-5.1); Sodium 137 mEq/L (136-145); eGFR For African Americans > 60 (> 60); eGFR For Non-African Americans 59 (> 60)
[2021-04-11] MEDS: Metoprolol XL (24 HR) Succ 25 MG TAB.ER.24H PO SCH (08:16)
[2021-04-11] MEDS: Bumetanide 1 MG TABLET PO SCH ×2 (08:17→15:37)
[2021-04-11] MEDS: Insulin LISPRO 300 UNITS/3 ML VIAL SUBQ SCH ×2 (08:17→13:11)
[2021-04-11] MEDS: *HR* Amiodarone 200 MG TABLET PO SCH (08:17)
[2021-04-11] MEDS: Apixaban 5 MG TABLET PO SCH (08:17)
[2021-04-11] MEDS: Isosorbide MONOnitrate (24 HR) 30 MG TAB.ER.24H PO SCH (08:17)
[2021-04-11] MEDS: lisinopriL 20 MG TABLET PO SCH (08:17)
[2021-04-11] MEDS: Nystatin POWDER 30 GM BOTTLE TP SCH ×2 (10:24→15:37)
[2021-04-11 15:18] VITALS: BP 129/80; PULSE 88; TEMP 97.8; O2SAT 93
== END 2021-04-11 15:38 | disposition home or self-care (01) ==
LOC: 3BNU 15:25 → EMEROOARM 15:25 → SUATTDRO 19:53 → 3BNU 20:48
PROVIDERS: ADMIT Internal Medicine; ATTEND Internal Medicine